=== PATIENT | male | born 1945 | race Caucasian/White ===

== ENCOUNTER 2020-06-12 13:30 | Outpatient (RCR) | payer MEDICARE, OTHER, SELFPAY | END 2021-02-22 14:13 | disposition home or self-care (01) | LOC: HO.WCC 13:30 | PROVIDERS: PCP Internal Medicine; Visit Provider Surgery | DX: E11.622 Type 2 diabetes mellitus with other skin ulcer (principal); L89.324 Pressure ulcer of left buttock, stage 4; E11.22 Type 2 diabetes mellitus with diabetic chronic kidney disease; I13.0 Hypertensive heart and chronic kidney disease with heart failure and stage 1 through stage 4 chronic kidney disease, or unspecified chronic kidney disease; I48.92 Unspecified atrial flutter; N18.30 Chronic kidney disease, stage 3 unspecified; I50.9 Heart failure, unspecified; I25.810 Atherosclerosis of coronary artery bypass graft(s) without angina pectoris; G82.21 Paraplegia, complete; I73.00 Raynaud's syndrome without gangrene; Z87.891 Personal history of nicotine dependence | CPT/HCPCS: 11042; 11043; 11045; 11046; 87071; 87147; 87186; 87205; 97597; 97605; 99212; 99213; 99214; 99215 ==

== ENCOUNTER 2020-07-12 16:45 | Emergency (ER) | payer MEDICARE, OTHER, SELFPAY ==
[2020-07-12 16:53] VITALS: BP 124/57; BP 150/84; PULSE 74; PULSE 92; RESP 18; TEMP 36.7; O2SAT 100; O2SAT 92; BMI 24.9
--- NOTE | 2020-07-12 17:53 | ED.LOWEXIN ---
HPI - Extremity Injury (Lower) General Chief Complaint: Extremity Injury, Lower Stated Complaint: laceration left leg Time Seen by Provider: 07/12/20 16:56 Source: patient Mode of arrival: ambulatory Limitations: no limitations History of Present Illness HPI Narrative: Transferring from car to wheelchair and lacerated left lower leg. Tetanus NOT UTD. 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) Type of Injury: blunt Place: home Severity: mild Relieving factors: nothing Exacerbating factors: nothing Context: direct blow Other symptoms: none Related Data Allergies Allergy/AdvReac Type Severity Reaction Status Date / Time cefuroxime [CEFUROXIME] AdvReac Intermediate GI SYMPTOMS Verified 07/12/20 17:43 Doxycycline Hyclate Allergy Unknown Unknown Uncoded 07/12/20 17:43 Review of Systems Review of Systems: Yes all other systems are reviewed and are negative Constitutional: Constitutional: Reports no additional constitutional complaints, Denies body ache(s), Denies chills, Denies fever(s), Denies headache(s) and Denies weakness Eyes: Eyes: Reports no additional eye complaints and Denies change in vision ENT: Reports system reviewed and no additional complaints, except as documented, Denies dizziness, Denies headache(s), Denies nasal congestion, Denies nasal discharge and Denies neck pain Cardiovascular: Cardiovascular: Reports no additional cardiovascular complaints, Denies chest pain, Denies leg edema and Denies dyspnea Respiratory: Respiratory: Reports no additional respiratory complaints, Denies cough and Denies dyspnea Gastrointestinal: Gastrointestinal: Reports no additional gastrointestinal complaints, Denies abdominal pain, Denies diarrhea, Denies nausea and Denies vomiting Genitourinary: Genitourinary: Denies urinary incontinence Musculoskeletal: Musculoskeletal: Reports no additional musculoskeletal complaints, Denies back pain, Denies arthralgias, Denies joint swelling, Denies neck pain, Denies numbness and Denies tingling Integumentary/Breasts: Skin/Breast: Reports system reviewed and no additional complaints, except as docu and Denies rash Comments: Skin laceration Neurologic: Reports system reviewed and no additional complaints, except as documented, Denies Abnormal speech present, Denies dizziness, Denies headache(s), Denies numbness, Denies tingling and Denies weakness PMFSH Past Medical History Attestation statement: The following information was validated with the patient. 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 Social History Social History Advance Directives: No Advance Directives Information Provided: Yes Physical Exam Vital Signs: Vital Signs: Vital Signs Temp Pulse Resp BP Pulse Ox 07/12/20 16:53 98.1 F 74 18 124/57 L 100 Body Mass Index 24.9 Const: General: cooperative, healthy appearing, comfortable and no acute distress Orientation/consciousness: patient oriented x3 Limitations: no limitations HENMT: Head: Yes normal to inspection Ears: hearing grossly normal bilaterally General nose exam: Normal external nose present Face and sinus: Yes normal facial exam Mouth: Normal oral and palatal mucosa present Throat: Yes posterior oropharynx normal Eyes: General: appearance normal, both eyes and all related structures Pupils: Equal, round and reactive pupils present Neck: Neck: Yes normal visual inspection Chest: Chest palpation & inspection: normal inspection of the chest Resp: Effort & Inspection: normal respiratory effort Auscultation: clear to auscultation bilaterally Cardio: Rate: regular rate Rhythm: regular rhythm Peripheral pulses: Peripheral pulses 2+ throughout GI: Inspection: Yes normal to inspection Palpation (GI): Soft to palpation and nontender Auscultation: normal bowel sounds Back/Spine/Pelvis: Thoracic/Lumbar Spine: thoracic and lumbar spine normal to inspection Skin: Other: Laceration to LLE (lateral). Runs vertically (10cm in length, 3cm in width), irregular edges with flap, exposed fascia and muscle. Limited range of motion d/t baseline paraplegia, sensation abnormal at baseline per patient. General skin exam: no rashes or lesions noted Neuro: General: patient oriented x3, no focal motor deficits and normal sensation to monofilament Cranial nerves: Yes Equal, round and reactive pupils present Cognition (Neuro): normal cognition Speech: No Abnormal speech present Gait exam (Neuro): Normal gait present Motor exam (neuro): 5/5 motor strength present throughout Extrem: General: Yes normal to inspection Course Course Course Narrative: See wound repair note. Tetanus updated. Reviewed wound care at home. He has nurses who come in weekly to change his chronic wounds. He will have them look at his wound on Friday. His will change dressings when nursing is not there. Reviewed worrisome signs/symptoms with patient and when to return to ED. Comfortable with discharge home. Procedures Laceration Laceration 1: Site: lower extremity Side (If applicable): left Size (cm): 10 Description: linear and irregular Depth: simple, single layer Local Anesthetic: other anesthetic (not needed) Pre-repair: wound explored, irrigated extensively and deep structures intact Skin layer closed with: nylon Size (cm): 3-0 Number of sutures: 14 Technique: simple, interrupted Subcutaneous layer closed with: other (polysorb) Size: 3-0 Number of sutures: 5 Technique: simple, interrupted Discharge Plan Discharge Clinical Impression: Laceration Patient Disposition: Home, Self-Care Instructions: Laceration (ED) Additional Instructions: Sutures out in 10-14 days Watch for signs of infection such as increasing redness, purulent drainage or fever greater than 100.4. Referrals: Dimitri Cantu MD [Primary Care Provider] - 2 days Interventions: ED Discharge Assessment Last Done: 07/12/20 18:20 Discharge Date/Time: 07/12/20 18:22
== END 2020-07-12 18:22 | disposition home or self-care (01) ==
PROVIDERS: Emergency Provider Internal Medicine; PCP Internal Medicine
DX: S81.812A Laceration without foreign body, left lower leg, initial encounter (principal); M79.605 Pain in left leg; S80.812A Abrasion, left lower leg, initial encounter; Y28.9XXA Contact with unspecified sharp object, undetermined intent, initial encounter; Y93.9 Activity, unspecified; Y92.9 Unspecified place or not applicable; Y99.9 Unspecified external cause status; Z23 Encounter for immunization
CPT/HCPCS: 12004; 90471; 90715; 99284

== ENCOUNTER → 2020-09-11 12:45 | Outpatient (REF) | payer MEDICARE, OTHER, SELFPAY ==
--- NOTE | 2020-09-11 13:00 | CA_ITS ---
Transthoracic Echocardiogram Patient (Last, First, Middle): Royce Winter, Gender: Male Date of : 1945 Age: 74 Procedure Date: 09/11/2020 Procedure Type: Transthoracic Echocardiogram Location: OP Height: 182.88 cm Weight: 81.65 kg BSA: 2.04 m2 Heart Rate: bpm BP: 120 / 60 mmHg Senior Engineering Manager: ZEHRA Referring MD: Kevan Woodard MD Symptoms: Z95.3 S/P AV REPLACEMENT W BIO PROS V, I48.3 ATRIAL FLUTTER Study Quality: Fair ECG Rhythm: Ventriculary paced rhythm Conclusions: - The left ventricular systolic function is normal. The visually estimated ejection fraction is between 65-70%. - There is mildly decreased right ventricular systolic function. - A bioprosthetic aortic valve is present. The prosthetic aortic valve appears to be functioning normally. - A bioprosthetic tricuspid valve is present. Mean gradient across the tricuspid valve 8 mm Hg at 70/min. This is elevated and suggests moderate stenosis. - Mild pulmonary hypertension is present. Findings Left Ventricle Normal left ventricular cavity size. There is mildly increased left ventricular wall thickness. The left ventricular systolic function is normal. The visually estimated ejection fraction is between 65-70%. There is no evidence of regional wall motion abnormalities. There is paradoxical septal motion consistent with post-operative status. Right Ventricle Normal right ventricular cavity size. There is mildly decreased right ventricular systolic function. Atria The left atrium is moderately dilated. The right atrium is normal in size. Aortic Valve A bioprosthetic aortic valve is present. The prosthetic aortic valve appears to be functioning normally. The peak aortic velocity is 2.19 m/s with a calculated peak gradient of 19 mmHg. The mean gradient is 9 mmHg. The aortic valve area is 1.89 cm2. There is mild aortic valve regurgitation. Mitral Valve The mitral valve appears normal. There is trace mitral valve regurgitation. There is no mitral valve stenosis. Pulmonic Valve The pulmonic valve was not well visualized. Tricuspid Valve A bioprosthetic tricuspid valve is present. The prosthetic tricuspid valve appears to be functioning abnormally. There is mild tricuspid valve regurgitation. The right ventricular systolic pressure is 46 mmHg. Mild pulmonary hypertension is present. Mean gradient across the tricuspid valve 8 mm Hg at 70/min. This is elevated and suggests moderate stenosis. Great Vessels The aortic annulus, sinuses of valsalva, and asc aorta are normal in size. Venous The inferior vena cava is dilated and collapses less than 50% with inspiration. Pericardium/Pleural There is no evidence of pericardial effusion. Prior Study Comparison No significant change compared to prior study dated: 02/23/2019. Measurements 2D Linear Measurements IVSd: 1.03 0.6-0.9/0.6-1.0 cm LVIDd: 4.16 3.9-5.3/4.2-5.9 cm LVIDd Index: 2.04 2.4-3.2/2.2-3.1 cm/m2 LVIDs: 2.51 2.0-3.6 cm LVPWd: 1.03 0.7-1.1 cm LA Diam: 4.30 2.7-3.8/3.0-4.0 cm LAIDs Index: 2.11 1.5-2.3 cm/m2 LV Mass: 175.40 67-162/88-224 g LV Mass Index: 85.98 43-95/49-115 g/m2 LVOT Diam: 2.10 3.0+(-)1.3 cm Mitral Valve MV Pk E: 1.04 MV PK A: 0.80 MV Decel Time: 292.00 E/A: 1.30 E'Medial: 4.06 E/E' Med: 25.60 PHT: 86.00 MVA PHT: 2.56 Decel Yoakum: 3.55 Aortic Valve AoV Pk Liban: 2.19 AoV Mn Liban: 1.34 AoV VTI: 0.36 AoV Pk Grad: 19.00 Aov Mn Grad: 9.00 JULES Cont.VTI: 1.89 AI Pk Liban: 4.27 AI Yoakum: 2.11 LVOT LVOT Pk Liban: 1.26 LVOT Mn Liban: 0.81 LVOT VTI: 0.20 LVOT Pk Grad: 6.00 LVOT Mn Grad: 3.00 LVOT Diam: 2.10 LVOT Area: 3.46 Diastolic Function MV Pk E: 1.04 MV Pk A: 0.80 E/A: 1.30 E'Medial: 4.06 E/E' Med: 25.60 Tricuspid Valve TV Pk Liban: 2.01 TV Mn Liban: 1.35 TV Pk Grad: 16.00 TV Mn Grad: 8.00 TR Pk Liban: 2.80 TR Pk Grad: 31.00 RA Press: 15.00 RVSP: 46.00 Great Vessels Aorta Ao Asc: 3.00 2.1-3.4 cm Ao Arch: 3.80 Updated in Other Vendor System with Status of Final Kevan Woodard MD electronically signed on 09/12/2020 12:30:45 PM with status of Final
== END ==
LOC: HO.CARD 12:45
PROVIDERS: PCP Internal Medicine; Visit Provider Internal Medicine
DX: I48.3 Typical atrial flutter (principal); Z95.3 Presence of xenogenic heart valve
CPT/HCPCS: 93306

== ENCOUNTER 2020-09-18 12:24 | Outpatient (REF) | payer MEDICARE, OTHER, SELFPAY ==
[2020-09-18 14:44] LABS: Basophils Percent Auto 0.3 % (0-2); Eosinophils Absolute Auto 0.1 X10*3/uL (0.0-0.4); Eosinophils Percent Auto 1.4 % (0-4); Hematocrit 30.9 % (42-52); Imm Gran Abs Auto 0.11 X10*3/uL (0.00-0.03); Imm Gran Pct Auto 1.1 % (0.0-0.4); Lymphocytes Absolute Auto 1.1 X10*3/uL (1.2-4.9); Lymphocytes Percent Auto 11.4 % (20-40); MANUAL DIFF FLAG NO; Mean Corpuscular HGB Conc 29.1 g/dl (31.0-36.0); Mean Corpuscular Hemoglobin 23.4 pg (27.0-33.0); Mean Corpuscular Volume 80.3 fL (80-98); Mean Platelet Volume 10.5 fL (9.4-12.4); Monocytes Absolute Auto 0.9 X10*3/uL (0.1-1.2); Monocytes Percent Auto 8.8 % (2-11); Neutrophils Absolute Auto 7.6 X10*3/uL (2.0-8.3); Platelet Count 272 X10*3/uL (160-400); Red Blood Count 3.85 X10*6/uL (4.60-5.80); Red Cell Distribution Width 21.2 % (11.0-16.0); White Blood Count 9.9 X10*3/uL (4.8-10.8)
[2020-09-18 15:27] LABS: Erythrocyte Sedimentation Rate 40 MM/HR (0-15)
[2020-09-18 15:51] LABS: Anion Gap 16 (12-20); Blood Urea Nitrogen 93 mg/dL (9-16); C Reactive Protein 3.54 mg/dL (< or = 0.50); Calcium 9.1 mg/dL (8.4-10.2); Carbon Dioxide 19 mmol/L (22-29); Chloride 108 mmol/L (96-108); Estimated Glomerular Filt Rate 33; Glucose Random 184 mg/dL (60-115); Sodium 138 mmol/L (135-145)
== END 2020-09-18 12:25 | disposition home or self-care (01) ==
LOC: HO.LAB 12:24
PROVIDERS: Absent Provider Physician Assistant; PCP Internal Medicine; Referring Provider Internal Medicine; Visit Provider Internal Medicine
DX: I11.0 Hypertensive heart disease with heart failure (principal); I50.812 Chronic right heart failure; I48.3 Typical atrial flutter; Z45.018 Encounter for adjustment and management of other part of cardiac pacemaker; Z95.3 Presence of xenogenic heart valve; Z95.4 Presence of other heart-valve replacement; L89.90 Pressure ulcer of unspecified site, unspecified stage
CPT/HCPCS: 36415; 80048; 84134; 85025; 85652; 86140; 93005; 99212

== ENCOUNTER 2020-11-13 15:55 | Outpatient (REF) | payer MEDICARE, OTHER, SELFPAY ==
--- NOTE | ~2020-11-13 | US_ITS ---
EXAMINATION: US VENOUS ULTRASOUND WITH DOPPLER LOWER EXTREMITY, RIGHT CLINICAL INFORMATION: Right leg edema and redness. COMPARISON: None TECHNIQUE: Ultrasound of the deep veins is performed from the hip to the calf with compression sonography and color and pulse Doppler assessment. Spectral analysis with color-flow imaging is performed. FINDINGS: There is normal venous compression and respiratory variation and augmented flow. The visualized common femoral vein, superficial femoral vein, profunda femoral vein, popliteal vein, and the trifurcation region shows no evidence of deep venous thrombosis. There is no significant popliteal fossa cyst. If the patient's symptoms persist, followup ultrasound in 5 days 7 days might be of value to exclude proximal propagation from a non-visualized calf vein. US/US venous duplex LE RT IMPRESSION: No DVT demonstrated in the right lower extremity.
== END 2020-11-13 15:56 | disposition home or self-care (01) ==
LOC: HO.US 15:55
PROVIDERS: Visit Provider Physician Assistant
DX: R60.0 Localized edema (principal); R23.8 Other skin changes; G82.21 Paraplegia, complete
CPT/HCPCS: 93971

== ENCOUNTER 2020-12-04 12:40 | Outpatient (REF) | payer MEDICARE, OTHER, SELFPAY ==
--- NOTE | ~2020-12-04 | US_ITS ---
EXAMINATION: US ARTERIAL LOWER EXTREMITY DUPLEX, BILATERAL CLINICAL INFORMATION: Peripheral vascular disease. COMPARISON: None TECHNIQUE: Real-time ultrasound and Doppler techniques (integrating B-mode 2-D vascular images, Doppler spectral analysis and color flow Doppler imaging) were utilized to interrogate the lower extremities. FINDINGS: RIGHT LEG: Common femoral artery: 57 cm/s, multiphasic Profunda femoris artery: There is a proximal calcific plaque resulting in posterior acoustic shadowing. Proximal to the plaque, peak systolic velocity is recorded as 38.8 cm/s with a multiphasic waveform, and distal to this plaque, the velocity is recorded as 123 cm/s with a multiphasic waveform. Superficial femoral artery (proximal): 58.5 cm/s, multiphasic Superficial femoral artery (mid): 26.1 cm/s, monophasic Superficial femoral artery (distal): 88.8 cm/s, monophasic Popliteal artery: 23.8 cm/s, monophasic Peroneal artery: 33.6 cm/s, monophasic Posterior tibial artery: 24 cm/s, monophasic LEFT LEG: Common femoral artery: 78 cm/s, multiphasic Profunda femoris artery: 96.2 cm/s, multiphasic Superficial femoral artery (proximal): 57 cm/s, multiphasic Superficial femoral artery (mid): There is focal narrowing at the midportion of the vessel, the proximal, more normal vessel diameter is measured as 0.64 cm and the stenotic portion narrows 0.268 cm. Proximal to this narrowing, peak systolic velocity measures on the order of 138 cm/s. At the level of this narrowing, peak systolic velocity is recorded as 206 cm/s. Waveforms are multiphasic. Superficial femoral artery (distal): 28.1 cm/s, biphasic Popliteal artery: 42.8 cm/s, biphasic Peroneal artery: 20.2 cm/s, monophasic Posterior tibial artery: 60.1 cm/s, monophasic US/US arterial duplex LE BI IMPRESSION: On the right, there is monophasic flow visualized beyond the level of the proximal superficial femoral artery suggestive of some degree of stenosis between the visualized proximal and midportion segments. On the left, there is moderate focal stenosis at the midportion of the superficial femoral artery with decreased peak systolic velocities and decreased phasicity of waveforms.
== END 2020-12-04 12:41 | disposition home or self-care (01) ==
LOC: HO.US 12:40
PROVIDERS: Visit Provider Physician Assistant
DX: I73.9 Peripheral vascular disease, unspecified (principal)
CPT/HCPCS: 93925

== ENCOUNTER → 2020-12-22 12:54 | Outpatient (BNVA) | payer MEDICARE, OTHER, SELFPAY | PROVIDERS: PCP Internal Medicine; Visit Provider Surgery Vascular Surgery | DX: I73.9 Peripheral vascular disease, unspecified (principal) | CPT/HCPCS: 99202 ==

== ENCOUNTER 2020-12-27 13:36 | Outpatient (REF) | payer MEDICARE, OTHER, SELFPAY ==
[2020-12-27 16:01] LABS: B Type Natriuretic Peptide 611 pg/mL (<100)
[2020-12-27 16:35] LABS: Anion Gap 16 (12-20); Blood Urea Nitrogen 86 mg/dL (9-16); Carbon Dioxide 19 mmol/L (22-29); Chloride 104 mmol/L (96-108); Estimated Glomerular Filt Rate 31; Glucose Random 232 mg/dL (60-115); Potassium 4.8 mmol/L (3.3-5.1); Sodium 134 mmol/L (135-145)
== END 2020-12-27 13:37 | disposition home or self-care (01) ==
LOC: HO.LAB 13:36
PROVIDERS: PCP Internal Medicine; Visit Provider Internal Medicine
DX: I50.812 Chronic right heart failure (principal)
CPT/HCPCS: 36415; 80048; 83880

== ENCOUNTER → 2020-12-28 13:31 | Outpatient (BNVA) | payer MEDICARE, OTHER, SELFPAY | PROVIDERS: PCP Internal Medicine; Visit Provider Nurse Practitioner Family | DX: I11.0 Hypertensive heart disease with heart failure (principal); I50.812 Chronic right heart failure; I48.3 Typical atrial flutter; I73.9 Peripheral vascular disease, unspecified; Z95.0 Presence of cardiac pacemaker; Z95.3 Presence of xenogenic heart valve; Z95.4 Presence of other heart-valve replacement; Z79.899 Other long term (current) drug therapy | CPT/HCPCS: 99212 ==

== ENCOUNTER 2021-01-03 15:26 | Outpatient (REF) | payer MEDICARE, OTHER, SELFPAY ==
[2021-01-03 16:27] LABS: B Type Natriuretic Peptide 494 pg/mL (<100)
[2021-01-03 16:50] LABS: Anion Gap 17 (12-20); Calcium 8.6 mg/dL (8.4-10.2); Carbon Dioxide 15 mmol/L (22-29); Chloride 106 mmol/L (96-108); Estimated Glomerular Filt Rate 21; Glucose Random 210 mg/dL (60-115); Sodium 133 mmol/L (135-145)
[2021-01-03 19:18] LABS: Blood Urea Nitrogen 89 mg/dL (9-16)
== END 2021-01-03 15:27 | disposition home or self-care (01) ==
LOC: HO.LAB 15:26
PROVIDERS: PCP Internal Medicine; Visit Provider Nurse Practitioner Family
DX: I50.812 Chronic right heart failure (principal)
CPT/HCPCS: 36415; 80048; 83880

== ENCOUNTER 2021-01-07 10:16 | Inpatient (IN) | payer MEDICARE, OTHER, SELFPAY ==
--- NOTE | ~2021-01-07 | IR_ITS ---
PROCEDURE: IR INSERTION OF TUNNEL CATHETER IR ULTRASOUND-GUIDED VENOUS ACCESS CLINICAL INFORMATION: Central venous access for outpatient antibiotic therapy. COMPARISON: None TECHNIQUE: Ultrasound and fluoroscopy-guided placement of right internal jugular central venous catheter. All elements of maximal sterile barrier technique followed including use of cap, mask, sterile gown, sterile gloves, a sterile full body drape and hand hygiene. Also followed skin preparation with 2% chlorhexidine for cutaneous antisepsis, and sterile ultrasound preparation with sterile gel and probe cover when applicable. FINDINGS: Informed consent was obtained from the patient prior to the procedure. During this process, the procedure and potential alternatives were explained, along with the intended outcome and benefits. The risks of the procedure, as well as the risk of not doing the procedure, were discussed. The patient was given the opportunity to ask questions regarding the procedure and appeared competent to make medical decisions. A signed consent form which documents this discussion was placed in the medical record. Using sterile technique and ultrasound guidance, the right internal jugular vein was punctured and guidewire directed into the inferior vena cava. Following this, a 6-Cameroonian Pro-Line catheter was tunneled within the superior aspect of the right chest wall. Following this, a 6-Cameroonian peel-away sheath was placed over guidewire into the superior vena cava. The Pro-Line catheter was then trimmed to 31 cm in length and placed through the peel-away sheath with its tip lying in the mid right atrium. The catheter aspirated and flushed freely. The catheter was then flushed with 5 mL of Hep-Lock solution, 100 U/mL. Dermabond was placed over the internal jugular puncture site. Antimicrobial disc placed at the skin insertion site. Patient tolerated the procedure and left the interventional suite in stable condition. IR/IR us guide venous access IMPRESSION: Placement of right internal jugular Pro-Line catheter, as described. 1.8 minutes fluoroscopy.
--- NOTE | ~2021-01-07 | IR_ITS ---
PROCEDURE: IR INSERTION OF TUNNEL CATHETER IR ULTRASOUND-GUIDED VENOUS ACCESS CLINICAL INFORMATION: Central venous access for outpatient antibiotic therapy. COMPARISON: None TECHNIQUE: Ultrasound and fluoroscopy-guided placement of right internal jugular central venous catheter. All elements of maximal sterile barrier technique followed including use of cap, mask, sterile gown, sterile gloves, a sterile full body drape and hand hygiene. Also followed skin preparation with 2% chlorhexidine for cutaneous antisepsis, and sterile ultrasound preparation with sterile gel and probe cover when applicable. FINDINGS: Informed consent was obtained from the patient prior to the procedure. During this process, the procedure and potential alternatives were explained, along with the intended outcome and benefits. The risks of the procedure, as well as the risk of not doing the procedure, were discussed. The patient was given the opportunity to ask questions regarding the procedure and appeared competent to make medical decisions. A signed consent form which documents this discussion was placed in the medical record. Using sterile technique and ultrasound guidance, the right internal jugular vein was punctured and guidewire directed into the inferior vena cava. Following this, a 6-Cambodian Pro-Line catheter was tunneled within the superior aspect of the right chest wall. Following this, a 6-Cambodian peel-away sheath was placed over guidewire into the superior vena cava. The Pro-Line catheter was then trimmed to 31 cm in length and placed through the peel-away sheath with its tip lying in the mid right atrium. The catheter aspirated and flushed freely. The catheter was then flushed with 5 mL of Hep-Lock solution, 100 U/mL. Dermabond was placed over the internal jugular puncture site. Antimicrobial disc placed at the skin insertion site. Patient tolerated the procedure and left the interventional suite in stable condition. IR/IR cvc insert central tunnel IMPRESSION: Placement of right internal jugular Pro-Line catheter, as described. 1.8 minutes fluoroscopy.
--- NOTE | ~2021-01-07 | XR_ITS ---
EXAMINATION: XR CHEST CLINICAL INFORMATION: Severe dehydration, rule out pneumonia COMPARISON: 06/07/2018 TECHNIQUE: Frontal view of the chest was obtained. FINDINGS: Left-sided pacemaker device is unchanged in position. Median sternotomy wires are intact. Partially visualized posterior fusion hardware at the thoracolumbar junction. Stable cardiomediastinal silhouette. New small to moderate right pleural effusion and right basilar airspace opacity. No acute osseous abnormality. XR/XR chest 1V IMPRESSION: Small to moderate right pleural effusion. Right basilar airspace opacity, that may reflect atelectasis or infiltrate.
[2021-01-07 10:27] VITALS: BP 126/43; PULSE 89; RESP 18; TEMP 37.4; O2SAT 96; BMI 26.9
--- NOTE | 2021-01-07 11:07 | ED.NAVMDI ---
HPI - Nausea/Vomiting/Diarrhea General Chief complaint: Nausea/Vomiting/Diarrhea Stated complaint: diarrhea Time Seen by Provider: 01/07/21 11:03 Source: patient and EMS Mode of arrival: EMS Limitations: no limitations History of Present Illness HPI Narrative: This is a 75-year-old male came in for evaluation of nonbloody watery diarrhea for the past 9 days. Nonbloody watery diarrhea started 9 days ago, after taking the medication prescribed for his coughing (patient does remember the name), patient otherwise declined chest pain, abdominal pain, nausea, or vomiting. Patient also declined any recent travel or taking bad food. Patient declined any recent use of antibiotic. Related Data Home Medications Medication Instructions Recorded Confirmed ascorbic acid (vitamin C) 500 mg mg PO 09/18/20 12/28/20 capsule calcium citrate 200 mg (950 mg) 200 mg PO DAILY 09/18/20 12/28/20 tablet cholecalciferol (vitamin D3) 50 50 mcg PO DAILY 09/18/20 12/28/20 mcg (2,000 unit) capsule furosemide 40 mg tablet 40 mg PO DAILY tab 09/18/20 12/28/20 losartan 50 mg tablet 25 mg PO BID tab 09/18/20 12/28/20 metformin 500 mg tablet 500 mg PO BID 09/18/20 12/28/20 metoprolol tartrate 25 mg tablet See Rx Instructions PO .COMPLEX 09/18/20 12/28/20 multivitamin 1 tab PO DAILY 09/18/20 12/28/20 potassium chloride 20 mEq 20 meq PO DAILY tab 09/18/20 12/28/20 tablet,extended release(part/cryst) Allergies Allergy/AdvReac Type Severity Reaction Status Date / Time linezolid [From Zyvox] AdvReac Severe SEVERE Verified 12/22/20 13:07 STOMACH PAIN cefuroxime [CEFUROXIME] AdvReac Intermediate GI SYMPTOMS Verified 12/22/20 13:07 Doxycycline Hyclate Allergy Unknown Unknown Uncoded 12/22/20 13:07 Review of Systems Review of Systems: All other systems are reviewed and are negative Constitutional: Reports as per HPI and Reports no additional constitutional complaints Eyes: Reports as per HPI and Reports no additional eye complaints Reports system reviewed and no additional complaints, except as documented Cardiovascular: Reports as per HPI and Reports no additional cardiovascular complaints Respiratory: Reports as per HPI and Reports no additional respiratory complaints Gastrointestinal: Reports as per HPI and Reports no additional gastrointestinal complaints Genitourinary: Reports no additional female genitourinary complaints Musculoskeletal: Reports no additional musculoskeletal complaints Skin/Breast: Reports system reviewed and no additional complaints, except as docu Psychiatric: Reports no additional psychiatric complaints Endocrine: Reports no additional endocrine complaints Hematologic/Lymphatic: Reports no additional hematologic/lymphatic complaints Allergic/Immunologic: Reports no additional allergic/immunologic complaints Reports system reviewed and no additional complaints, except as documented and Reports Abnormal speech present [facility] Past Medical History Medical History Bacterial endocarditis Chronic right heart failure Endocarditis Essential hypertension Mitral and aortic heart valve diseases, unspecified Normally functioning cardiac pacemaker present Pacemaker 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 Typical atrial flutter Surgical History Status post aortic valve replacement with bioprosthetic valve Status post tricuspid valve replacement Social History Social History Household Members: Significant Other Alcohol intake: never Smoked in Last 30 Days: No Use of substances other than those prescribed or required for medical reasons: No Advance Directives: Yes Advance Directives Information Provided: No Advance Directives on File: No Physical Exam Vital Signs: Vital Signs: Last Vital Signs Temp 99.4 F 01/07/21 10:27 Pulse 89 01/07/21 10:27 Resp 18 01/07/21 10:27 BP 126/43 L 01/07/21 10:27 Pulse Ox 96 01/07/21 10:27 Body Mass Index 26.9 Vital signs have been reviewed as appeared to be correct. Blood pressure normal. Heart rate normal. Respiration rate normal. Temperature normal. Oxygen saturation normal. Appearance: Alert. Oriented X3. No acute distress. Head: Normal external exam. Normocephalic. Atraumatic. No Preston signs noted. No raccoon eyes noted Eyes: PERRLA. EOMI. Conjunctiva and sclera normal. Eyelids normal. ENT: TM's Normal. Pharynx normal. Uvula midline. Moist mucous membranes. No trismus noted. No drooling noted. No muffled voice noted. Neck: Normal inspection. Neck supple. FROM. No adenopathy. Thyroid Normal. No meningeal signs. No neck mass noted. CVS: Normal heart rate and rhythm. Heart sound normal. No murmurs noted. Pulses normal throughout. Respiratory: No respiratory distress. Painless inspiration. Breath sounds normal. No wheezes/rales/rhonchi noted. Chest nontender. No accessory muscle usage noted or decreased air movement noted. Abdomen: Soft and nontender. Bowel sounds normal in all 4 quadrants. No distention noted. No organomegaly noted. No visible injury noted. Back: No CVA tenderness. Full range of motion noted. Skin: Skin warm and dry. Normal skin color. Normal skin turgor. No rashes/lesions/lacerations noted. Extremities: No lower extremity edema. Extremities exhibit normal range of motion. Extremities nontender. Neuro: Oriented X 3. No motor deficit. No sensory deficit. Reflexes normal. Discharge Plan Discharge Prescriptions: No Action metformin 500 mg tablet 500 mg PO BID RF: 0 metoprolol tartrate 25 mg tablet See Rx Instructions PO .COMPLEX RF: 0 losartan 50 mg tablet 25 mg PO BID RF: 0 furosemide 40 mg tablet 40 mg PO DAILY RF: 0 potassium chloride 20 mEq tablet,ER particles/crystals 20 meq PO DAILY RF: 0 cholecalciferol (vitamin D3) 50 mcg (2,000 unit) capsule 50 mcg PO DAILY RF: 0 multivitamin Tablet 1 tab PO DAILY RF: 0 ascorbic acid (vitamin C) 500 mg capsule PO RF: 0 calcium citrate 200 mg (950 mg) tablet 200 mg PO DAILY RF: 0
[2021-01-07] MEDS: 0.9 % Sodium Chloride 1,000 ML 999 ML IVCONT ×2 (11:23→16:20)
[2021-01-07 11:29] LABS: Basophils Percent Auto 0.1 % (0-2); Hematocrit 31.9 % (42-52); Hemoglobin 9.7 g/dl (14.0-18.0); Imm Gran Abs Auto 0.09 X10*3/uL (0.00-0.03); Imm Gran Pct Auto 0.7 % (0.0-0.4); Lymphocytes Absolute Auto 0.5 X10*3/uL (1.2-4.9); Lymphocytes Percent Auto 3.7 % (20-40); MANUAL DIFF FLAG SCAN; Mean Corpuscular HGB Conc 30.4 g/dl (31.0-36.0); Mean Corpuscular Volume 78.8 fL (80-98); Mean Platelet Volume 9.7 fL (9.4-12.4); Monocytes Absolute Auto 1.5 X10*3/uL (0.1-1.2); Monocytes Percent Auto 10.7 % (2-11); Neutrophils Absolute Auto 11.6 X10*3/uL (2.0-8.3); Neutrophils Percent Auto 84.8 % (45-73); Platelet Count 267 X10*3/uL (160-400); Red Blood Count 4.05 X10*6/uL (4.60-5.80); Red Cell Distribution Width 16.5 % (11.0-16.0); SCAN SMEAR FLAG 1; White Blood Count 13.7 X10*3/uL (4.8-10.8)
[2021-01-07 11:48] LABS: SLIDE REVIEW VERIFIED
[2021-01-07 11:55] LABS: Alanine Aminotransferase 15 U/L (0-40); Albumin Level 3.2 g/dL (3.5-5.0); Alkaline Phosphatase 99 U/L (39-117); Aspartate Amino Transferase 19 U/L (5-37); Bilirubin Direct 0.3 mg/dL (0.0-0.5); Bilirubin Total 0.6 mg/dL (0.0-1.0); Calcium 8.7 mg/dL (8.4-10.2); Glucose Random 165 mg/dL (60-115); Lipase 19 U/L (8-78); Total Protein 6.3 g/dL (6.5-8.0)
[2021-01-07 12:05] LABS: Anion Gap 18 (12-20); Blood Urea Nitrogen 104 mg/dL (9-16); Carbon Dioxide 12 mmol/L (22-29); Chloride 106 mmol/L (96-108); Creatinine Clr Calc Pharmacy 17.3; Estimated Glomerular Filt Rate 16; Sodium 130 mmol/L (135-145)
--- NOTE | 2021-01-07 13:14 | ECG_ITS ---
Test Reason : VOMITING Blood Pressure : / mmHG Vent. Rate : 060 BPM Atrial Rate : 078 BPM P-R Int : 000 ms QRS Dur : 170 ms QT Int : 468 ms P-R-T Axes : 082 114 -31 degrees QTc Int : 468 ms Ventricular-paced rhythm Abnormal ECG When compared with ECG of 07-JUN-2018 06:31, No significant changes seen Referred By: Hiram Le Electronically Signed By:SNEHAL LOPEZ
[2021-01-07 14:05] VITALS: BP 92/38; PULSE 60; RESP 16; O2SAT 98
--- NOTE | 2021-01-07 14:21 | PC.NURSE ---
second l jamey hung per verbal order
[2021-01-07 14:29] LABS: Influenza A PCR NEGATIVE (Negative); Influenza B PCR NEGATIVE (Negative); Resp Syncy Virus RNA Qual PCR NEGATIVE (Negative); SARS COV2 PCR INHOUSE NEGATIVE (Negative)
[2021-01-07 15:11] VITALS: BP 102/42
--- NOTE | 2021-01-07 15:23 | PM.IMHP ---
History of Present Illness Date of Service: 01/07/21 Chief Complaint: diarrhea 75M presented with diarrhea. symptoms began about 8 days ptp. patient has several watery stools daily, each episode is proceeded by sharp abdominal pain releived by defecation. denies blood. stool is low volume. not improved with imodium. patient attributes diarrhea to metolazone, although has been off for over a week. patient denies fever, chills, sob. 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 patient given iv fluids. Review of Systems Review of Systems: Constitutional: Denies fever, denies Chills Eyes: denies blurry vision ENT: denies sore throat CVS: denies chest pain Respiratory: Denies dyspnea GI: diarrhea : denies dysuria MSK: denies neck pain Skin: denies rash Neuro: denies specific motor weakness Psych: denies suicidal ideation Endocrine: denies heat/cold intoleratnce Hematologic: denies easy bleeding Allergy: denies hives [facility] Medical History (Updated 01/07/21 @ 15:30 by Jericho Johnson MD) Bacterial endocarditis Chronic right heart failure Diabetes Endocarditis Essential hypertension Mitral and aortic heart valve diseases, unspecified Normally functioning cardiac pacemaker present Pacemaker Paraplegia 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 Typical atrial flutter Family history: reviewed and not pertinent Surgical History Status post aortic valve replacement with bioprosthetic valve Status post tricuspid valve replacement Social History Household Members: Significant Other Alcohol intake: never Smoked in Last 30 Days: No Use of substances other than those prescribed or required for medical reasons: No Advance Directives: Yes Advance Directives Information Provided: No Advance Directives on File: No Meds Allergies Allergy/AdvReac Type Severity Reaction Status Date / Time linezolid [From Zyvox] AdvReac Severe SEVERE Verified 12/22/20 13:07 STOMACH PAIN cefuroxime [CEFUROXIME] AdvReac Intermediate GI SYMPTOMS Verified 12/22/20 13:07 Doxycycline Hyclate Allergy Unknown Unknown Uncoded 12/22/20 13:07 Home Medications Medication Instructions Recorded Confirmed Last Taken Type ascorbic acid (vitamin C) 500 mg mg PO 09/18/20 12/28/20 Unknown History capsule calcium citrate 200 mg (950 mg) 200 mg PO DAILY 09/18/20 12/28/20 Unknown History tablet cholecalciferol (vitamin D3) 50 50 mcg PO DAILY 09/18/20 12/28/20 Unknown History mcg (2,000 unit) capsule furosemide 40 mg tablet 40 mg PO DAILY tab 09/18/20 12/28/20 Unknown History losartan 50 mg tablet 25 mg PO BID tab 09/18/20 12/28/20 Unknown History metformin 500 mg tablet 500 mg PO BID 09/18/20 12/28/20 Unknown History metoprolol tartrate 25 mg tablet See Rx Instructions PO .COMPLEX 09/18/20 12/28/20 Unknown History multivitamin 1 tab PO DAILY 09/18/20 12/28/20 Unknown History potassium chloride 20 mEq 20 meq PO DAILY tab 09/18/20 12/28/20 Unknown History tablet,extended release(part/cryst) collagenase clostridium histo. 1 applic TOPICAL DAILY 01/07/21 01/07/21 Unknown History [Santyl] metolazone 2.5 mg PO 01/07/21 Unknown History Physical Exam Vital Signs and Narrative: Vital Signs: Last Vital Signs Temp 99.4 F 01/07/21 10:27 Pulse 60 01/07/21 14:05 Resp 16 01/07/21 14:05 BP 102/42 L 01/07/21 15:11 Pulse Ox 98 01/07/21 14:05 Body Mass Index 26.9 General: no acute distress HEENT: atraumatic Neck: normal to visual inspection CVS: S1, S2, RRR, murmur Resp: CTA bilateral Chest: non tender GI: soft, non tender, non distended : no CVA tenderness Skin: no rashes Extremities: no edema Neuro: Oriented X3, paraplegia Psych: cooperative Results Labs CBC and Chem 7: 01/07/21 11:21 01/07/21 11:21 Labs: Laboratory Results - last 24 hr 01/07/21 01/07/21 01/07/21 11:21 11:21 11:21 MCV 78.8 L MCH 24.0 L MCHC 30.4 L RDW 16.5 H Plt Count 267 MPV 9.7 Immature Gran % (Auto) 0.7 H Neut % (Auto) 84.8 H Lymph % (Auto) 3.7 L [place] % (Auto) 10.7 Eos % (Auto) 0.0 Baso % (Auto) 0.1 Lymph # (Auto) 0.5 L [place] # (Auto) 1.5 H Eos # (Auto) 0.0 Baso # (Auto) 0.0 Abs Immat Gran (auto) 0.09 H Absolute Neuts (auto) 11.6 H Absolute Nucleated RBC 0.000 Nucleated RBC % (auto) 0.0 Smear Tech's Comments VERIFIED Anion Gap 18 Estim Creat Clear Calc 17.3 Estimated GFR 16 Random Glucose 165 H Lactic Acid 1.0 Calcium 8.7 Total Bilirubin 0.6 Direct Bilirubin 0.3 AST 19 ALT 15 Alkaline Phosphatase 99 Total Protein 6.3 L Albumin 3.2 L Lipase 19 Imaging Radiologist's Impressions: Impressions Chest X-Ray 01/07/21 11:04 IMPRESSION: Small to moderate right pleural effusion. Right basilar airspace opacity, that may reflect atelectasis or infiltrate. Assessment and Plan (1) Paraplegia: Status: Acute 75M presented with diarrhea, found to have Gemma and hyperkalemia diarrhea check cdif, if negative will use imodium GEMMA on CKD IV complicated by hyperkalemia due to diarrhea hold lisinopril, losartan, K supplements, lopressor, metformin, lasix will give IV fluids monitor bmp nephro eval DM hold metformin insulin sliding scale paraplegia usually self catheterizes, will insert newton inpatient PVD outpatient follow up with dr Tanner
[2021-01-07 16:45] LABS: Glucose Urine UA NEG (NEG); Leukocyte Esterase Urine 2+ (NEG); Nitrite Urine NEG (NEG); PH 5.5 (5.0-8.0); UACC Culture Trigger YES; Urine Blood 1+ (NEG); Urine Ketones NEG (NEG); Urine Protein TRACE MG/DL (NEG-TRACE)
[2021-01-07 16:47] LABS: Appearance Urine CLOUDY; Color Urine YELLOW
[2021-01-07 16:54] LABS: Bacteria Urine 3+ /LPF; Squamous Epithelial Cell Urine 1+ /LPF; WBC Urine TNTC /HPF (0-4)
[2021-01-07] MEDS: Albumin Human 25 % 100 ML IV ×2 (18:12→20:11)
--- NOTE | 2021-01-07 18:16 | PC.NURSE ---
reports two wounds- l buttock area and l lower leg
--- NOTE | 2021-01-07 18:21 | PC.NURSE ---
stemp at bedside
--- NOTE | 2021-01-07 18:26 | PC.NURSE ---
bp continues soft systolic 80-100/40-80 s/p 3 liters of ns. stemp at bedside for ultrasound and albumin infusing per order.
--- NOTE | 2021-01-07 18:44 | PM.EVENT ---
Event Note Date of Service: 01/07/21 Event Note: I was asked by Dr. Johnson to look at Mr. Winter in the ED bec of hypotension. The patient is a 75 yo gentlemen with the following PMHx: Bacterial endocarditis Chronic right heart failure Diabetes Essential hypertension Mitral and aortic heart valve diseases, unspecified Cardiac pacemaker Atrial flutter Paraplegia 2? 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 No blood. Stool is low volume, not improved with imodium. Patient attributed diarrhea to metolazone, although has been off for over a week. Denied fever, chills, sob. Denied any travel, bad food, or recent antibiotics. In ED NAD. Afebrile. BP about 120/40. Heart rate 60, paced. Breathing easy, sat 98 on room air. Abdomen benign. WBC 13.7, Hb 9.7, INR 1.4, Na 130 BUN/creat 104/3.7, K 6.0, bicarb 12. Lactic acid negative. He was given 2 L of IV fluid and his blood pressure initially came up, but then dropped into the 80s. Dr. Johnson asked me to look at him. In the ER, the patient is not ill appearing.. He is breathing easy. Blood pressure when I saw him was initially 94 systolic, then 104 systolic. I syringed in 100 cc of 5% albumin. His next blood pressure was 136. ECHOCARDIOGRAM: I echoed him at the bedside. Image quality: Good. Findings: 1. Mild LVH. 2. Normal LV function with ejection fraction at least 55%. No regional wall motion abnormalities. 3. Possibly top-normal RV size with normal RV function. 4. Tricuspid valve continuous wave Doppler jet measured 2.8 m/s. Gradient 31mm. 5. IVC is dilated at 2.5cm, with about 25% insp collapse. Est CVP 15mm. RVSP estimate 46mm. IMPRESSION: 1. Diarrhea. Etiology undetermined at this time. R/o CDiff. 2. Hypotension. Given the fluid response, would appear to be hypovolemia, despite the echo findings. 3. GEMMA. At least in part 2? hypovolemia. 4. Prosthetic valves. Check blood cultures. 5. Hyperkalemia. Usual treatment. Follow up chemistries are pending. I called Dr. Johnson and discussed the above. He will f/u. Time: 45 min. [id number]
[2021-01-07 18:45] VITALS: BP 129/68
[2021-01-07 19:07] LABS: Anion Gap 16 (12-20); Blood Urea Nitrogen 98 mg/dL (9-16); Calcium 8.3 mg/dL (8.4-10.2); Carbon Dioxide 12 mmol/L (22-29); Chloride 110 mmol/L (96-108); Creatinine Clr Calc Pharmacy 18.3; Estimated Glomerular Filt Rate 17; Glucose Random 129 mg/dL (60-115); Potassium 5.3 mmol/L (3.3-5.1); Sodium 133 mmol/L (135-145)
[2021-01-07 20:10] VITALS: BP 106/43; PULSE 60; RESP 21; O2SAT 94
[2021-01-07] MEDS: Heparin Sodium,Porcine 5,000 UNIT/ML VIAL 5000 UNIT SUBCUT (20:11)
[2021-01-07] MEDS: 0.9 % Sodium Chloride 1,000 ML 80 ML IVCONT (20:14)
[2021-01-07 20:44] LABS: Glucose, Whole Blood 114 mg/dL (60-115)
--- NOTE | 2021-01-07 21:05 | PC.NURSE ---
pt sleeping, wakes easily. pt reports feeling tired, when asked how he was doing. pt had medium bm-diarrhea. pt refused kayexelate.
--- NOTE | 2021-01-07 22:51 | PC.NURSE ---
pt placed in hospital bed for comfort. pt has a stage 3 or stage 4 wound to left coccyx/buttock that has a special dressing and has been treated weekly by wound care, per patient.
[2021-01-07 23:05] VITALS: BP 104/44; PULSE 60; RESP 20; O2SAT 96
[2021-01-08] VITALS (10 sets, daily range): BP systolic 82–132; BP diastolic 27–54; PULSE 60–92; RESP 13–20; TEMP 36.1–37.2; O2SAT 93–99; BMI 26.9
[2021-01-08] MEDS: Heparin Sodium,Porcine 5,000 UNIT/ML VIAL 5000 UNIT SUBCUT ×3 (04:26→17:18)
--- NOTE | 2021-01-08 06:32 | PC.NURSE ---
CALLED AND REPORTS THAT PATIENT HAS SPECIFIC INSTUCTIONS FOR PT'S WOUNDS ON COCCYX AND RIGHT HEEL. THEY ARE KEPT IN HIS BLACK CASE, AND DRESSINGS NEED TO BE CHANGED DAILY.
[2021-01-08 06:49] LABS: Anion Gap 16 (12-20); Calcium 8.4 mg/dL (8.4-10.2); Carbon Dioxide 12 mmol/L (22-29); Chloride 113 mmol/L (96-108); Creatinine Clr Calc Pharmacy 19.8; Estimated Glomerular Filt Rate 18; Glucose Random 91 mg/dL (60-115); Sodium 136 mmol/L (135-145)
[2021-01-08 06:50] LABS: Blood Urea Nitrogen 96 mg/dL (9-16)
[2021-01-08 06:57] LABS: Basophils Percent Auto 0.2 % (0-2); Eosinophils Absolute Auto 0.1 X10*3/uL (0.0-0.4); Eosinophils Percent Auto 0.5 % (0-4); Hematocrit 29.8 % (42-52); Hemoglobin 8.9 g/dl (14.0-18.0); Imm Gran Abs Auto 0.12 X10*3/uL (0.00-0.03); Lymphocytes Absolute Auto 0.7 X10*3/uL (1.2-4.9); Lymphocytes Percent Auto 5.8 % (20-40); MANUAL DIFF FLAG SCAN; Mean Corpuscular HGB Conc 29.9 g/dl (31.0-36.0); Mean Corpuscular Hemoglobin 23.8 pg (27.0-33.0); Mean Corpuscular Volume 79.7 fL (80-98); Mean Platelet Volume 9.7 fL (9.4-12.4); Monocytes Absolute Auto 1.4 X10*3/uL (0.1-1.2); Monocytes Percent Auto 12.3 % (2-11); Neutrophils Absolute Auto 9.4 X10*3/uL (2.0-8.3); Neutrophils Percent Auto 80.2 % (45-73); Platelet Count 232 X10*3/uL (160-400); Red Blood Count 3.74 X10*6/uL (4.60-5.80); Red Cell Distribution Width 16.7 % (11.0-16.0); SCAN SMEAR FLAG 1; White Blood Count 11.7 X10*3/uL (4.8-10.8)
[2021-01-08] MEDS: 0.9 % Sodium Chloride 1,000 ML 80 ML IVCONT ×2 (07:16→20:30)
[2021-01-08 07:22] LABS: Glucose, Whole Blood 82 mg/dL (60-115)
--- NOTE | 2021-01-08 07:24 | PC.NURSE ---
PT SLEEPING BUT EASILY AROUSABLE, RESPIRATIONS EVEN AND UNLABORED. PT DENIES PAIN AT THIS TIME. RUIZ IN PLACE AND ONLY ABOUT 300CC OF URINE IN THE BAG, VISIBLE SEDIMENT IN THE RUIZ TUBING. PT'S ORAL MUCOSAL VERY D DRY, POC OF 82 THIS MORNING. PT SET UP WITH BREAKFAST KALE AND ENCOURAGED TO EAT SOME OF HIS BREAKFAST. PT DID REPORT THAT HE IS NOT THAT HUNGRY. NS INFUSING AT 80ML/HR
[2021-01-08 07:28] LABS: SLIDE REVIEW VERIFIED
--- NOTE | 2021-01-08 07:33 | PC.NURSE ---
FAXED AND CALLED MED/SURG AWAITING A CALL BACK
[2021-01-08] MEDS: 0.9 % Sodium Chloride Flush 3 ML SYRINGE IVFLUSH ×2 (08:17)
--- NOTE | 2021-01-08 08:34 | HO.PM.IMPN ---
Subjective Subjective Date of Service: 01/08/21 Interval History: no diarrhea yet today Respiratory Respiratory: Reports no additional respiratory complaints Gastrointestinal Gastrointestinal: Reports no additional gastrointestinal complaints Physical Exam Vital Signs: Vital Signs: Last Vital Signs Temp 98.5 F 01/08/21 07:14 Pulse 60 01/08/21 07:14 Resp 16 01/08/21 07:14 BP 107/45 L 01/08/21 07:14 Pulse Ox 98 01/08/21 07:14 Body Mass Index 26.9 General: AO X 3, no acute distress Resp: CTA bilateral CVS: S1,S2,RRR GI: soft, non tender, non distended Neuro: paraplegia Psych: appropriate affect Objective Data Current Medications Generic Name Dose Route Start Last Admin Trade Name Freq PRN Reason Stop Dose Admin Heparin Sodium (Porcine) 5,000 unit 01/07/21 17:48 01/08/21 04:26 Heparin Sodium,Porcine 5,000 Unit/Ml Vial SUBCUT 5,000 unit Q8H MAGDALENA Administration Sodium Chloride 1,000 mls @ 80 mls/hr 01/07/21 17:48 01/08/21 07:16 Ns IVCONT 80 mls/hr .[id number] MAGDALENA Administration Sodium Chloride 1,000 mls @ 100 mls/hr 01/26/21 00:00 Ns IVCONT .Q10H MAGDALENA Insulin Human Lispro 0 unit 01/07/21 17:48 01/08/21 07:17 Insulin Lispro 100 Unit/Ml 3 Ml Vial SUBCUT Not Given QIDACHS [facility] Protocol Sodium Chloride 3 ml 01/07/21 17:48 01/08/21 08:17 0.9 % Sodium Chloride Flush 3 Ml Syringe IVFLUSH 3 ml QSHIFT MAGDALENA Administration Labs CBC & Chem 7: 01/08/21 06:09 01/08/21 06:09 Microbiology Microbiology Results: Microbiology 01/07/21 16:48 Urine clean catch - Clean Catch Midstream Urine Culture - Preliminary Gram negative felix Assessment and Plan (1) Status post tricuspid valve replacement: Status: Acute (2) Status post aortic valve replacement with bioprosthetic valve: Status: Acute Assessment and Plan: 75M presented with diarrhea, found to have Gemma and hyperkalemia diarrhea has not had further stool to send sample yet check cdif, if negative will use imodium GEMMA on CKD IV complicated by hyperkalemia due to diarrhea s/p 15gm kayexylate hold lisinopril, losartan, K supplements, lopressor, metformin, lasix GEMMA improving (creatinine from 3.79 to 3.32, baseline around 2?) hyperkalemia resolved (was 6, now 5) continue IV fluids monitor bmp nephro eval hypotension hypovolemic improved DM hold metformin insulin sliding scale paraplegia usually self catheterizes, indwelling [place] while inpatient PVD outpatient follow up with dr Tanner
--- NOTE | 2021-01-08 10:24 | MHC.CM.PN ---
NURSE BI DATA ARCHITECT NOTE ELECTRONIC MEDICAL RECORD REVIEQWED ALONG WITH CASE DISCUSSED WITH STAFF NURSE, MET WITH PATIENT HE REPORTED HE HAS A HEALTH CARE PROXY REQUESTED A COPY OF THE HCP TO BE BROUGHT IN. HE REPORTS THAT HE HAD A T 11-12 SPINAL CIORD INJURY, ABOUT 3 YRS AGO , HE DESCRIBES HIMSELF ACTIVE, AND HAS GAINED INDEPENDENCE DESPITE HIS SPINAL CORD INJURY HE REPORTED HE WENT TO THE [facility] FOR REHAB AFTER HIS INJURY, HE HAS [facility] FOR THE [facility] WITH NURSING 2 X WEEK, HE HAS NO OTHER SERVICES IN THE HOME HE SELF DOES STRAIGHT CATHETERIZES HIUMSELF, AND THE SUPPLIES ARE OBTAINED THROUGH THE [facility]. HE REPORTED HIS HOME I S HANDICAP ACCESSABLE HE DOES HIS OWN TRANSFERS FROM BED TO CHAIR ,OR WHEELCHIR , HE CONTINUES TO DRIVE HE HAS A WHEELCHIAR , AND REQUESTED HIS TO BRING IT IN. HE HAS NO OTHER SRRVICES IN THE HOME, PATIENT IS CONCERNED BECAUSE HE HAs BECOME WEAKNED and does not want to loose is indeoendence, he asked to see if the staff could get him up to the [facility] this was voiced to the patients nurse discharge plan home with his with resumoption of his [employer] van for nrusing self resumption of the [facility] wound [facility] transport family pcp dr melba marte
[2021-01-08 11:20] LABS: Glucose, Whole Blood 131 mg/dL (60-115)
--- NOTE | 2021-01-08 13:57 | PM.CNNEP ---
History of Present Illness Reason for Consult Consult date: 01/08/21 Reason for consult: GEMMA Chief Complaint Chief complaint: Diarrhea GEMMA History of Present Illness Narrative: Ask to c PT for GEMMA on CKD in setting of diarrhea. Diarrhea onset approx 10 days ago that he attributes to taking a new med--zaroxlyn-- which he only took 1 dose of. He was having incr SOB and the zaroxlyn was added to his us maintenence lasix. He is a paraplegic and st cath himself 3x/day routimnely for years. His diarrhea has improved. He denies taking NSAIDs or any other change in his meds. Review of Systems Review of Systems Constitutional: Denies fever, denies Chills Eyes: denies blurry vision ENT: denies sore throat CVS: denies chest pain Respiratory: Denies dyspnea GI: diarrhea : denies dysuria MSK: denies neck pain Skin: denies rash Neuro: denies specific motor weakness Psych: denies suicidal ideation Endocrine: denies heat/cold intoleratnce Hematologic: denies easy bleeding Allergy: denies hives Respiratory: Reports no additional respiratory complaints Gastrointestinal: Reports no additional gastrointestinal complaints [facility] Past Medical History Medical History (Updated 01/08/21 @ 08:59 by Hiram Le MD) Bacterial endocarditis Chronic right heart failure Diabetes Endocarditis Essential hypertension Mitral and aortic heart valve diseases, unspecified Normally functioning cardiac pacemaker present Pacemaker Paraplegia 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 Typical atrial flutter Family History Family history: reviewed and not pertinent Surgical History Surgical History Status post aortic valve replacement with bioprosthetic valve Status post tricuspid valve replacement Social History Social History Household Members: Significant Other Alcohol intake: never Smoked in Last 30 Days: No Use of substances other than those prescribed or required for medical reasons: No Advance Directives: Yes Advance Directives Information Provided: No Advance Directives on File: No service: Yes Current occupational status: retired Meds Allergies Allergy/AdvReac Type Severity Reaction Status Date / Time linezolid [From Zyvox] AdvReac Severe SEVERE Verified 12/22/20 13:07 STOMACH PAIN cefuroxime [CEFUROXIME] AdvReac Intermediate GI SYMPTOMS Verified 12/22/20 13:07 Doxycycline Hyclate Allergy Unknown Unknown Uncoded 12/22/20 13:07 Active Medications: Current Medications Generic Name Dose Route Start Last Admin Trade Name Linda PRN Reason Stop Dose Admin Heparin Sodium (Porcine) 5,000 unit 01/07/21 17:48 01/08/21 12:21 Heparin Sodium,Porcine 5,000 Unit/Ml Vial SUBCUT 5,000 unit Q8H MAGDALENA Administration Sodium Chloride 1,000 mls @ 80 mls/hr 01/07/21 17:48 01/08/21 07:16 Ns IVCONT 80 mls/hr .[id number] MAGDALENA Administration Sodium Chloride 1,000 mls @ 100 mls/hr 01/26/21 00:00 Ns IVCONT .Q10H MAGDALENA Insulin Human Lispro 0 unit 01/07/21 17:48 01/08/21 12:21 Insulin Lispro 100 Unit/Ml 3 Ml Vial SUBCUT Not Given QIDACHS MAGDALENA Protocol Sodium Chloride 3 ml 01/07/21 17:48 01/08/21 08:17 0.9 % Sodium Chloride Flush 3 Ml Syringe IVFLUSH 3 ml QSHIFT MAGDALENA Administration Home Medications Medication Instructions Recorded Confirmed Last Taken Type ascorbic acid (vitamin C) 500 mg mg PO 09/18/20 12/28/20 Unknown History capsule calcium citrate 200 mg (950 mg) 200 mg PO DAILY 09/18/20 12/28/20 Unknown History tablet cholecalciferol (vitamin D3) 50 50 mcg PO DAILY 09/18/20 12/28/20 Unknown History mcg (2,000 unit) capsule furosemide 40 mg tablet 40 mg PO DAILY tab 09/18/20 12/28/20 Unknown History losartan 50 mg tablet 50 mg PO BID tab 09/18/20 01/07/21 Unknown History metformin 500 mg tablet 500 mg PO BID 09/18/20 01/07/21 Unknown History metoprolol tartrate 25 mg tablet See Rx Instructions PO .COMPLEX 09/18/20 01/07/21 Unknown History multivitamin 1 tab PO DAILY 09/18/20 12/28/20 Unknown History potassium chloride 20 mEq 20 meq PO DAILY tab 09/18/20 12/28/20 Unknown History tablet,extended release(part/cryst) collagenase clostridium histo. 1 applic TOPICAL DAILY 01/07/21 01/07/21 Unknown History [Santyl] metolazone 2.5 mg PO 01/07/21 Unknown History Physical Exam Vital Signs: Last Vital Signs Temp 97.0 F 01/08/21 11:27 Pulse 62 01/08/21 11:27 Resp 20 01/08/21 11:27 BP 112/43 L 01/08/21 11:27 Pulse Ox 97 01/08/21 11:27 Body Mass Index 26.9 Results Lab Results Result Diagrams: 01/08/21 06:09 01/08/21 06:09 Lab results: Chemistry 01/07/21 01/07/21 01/08/21 11:21 18:22 06:09 Sodium 130 L 133 L 136 Potassium 6.0 H* 5.3 H 5.0 Carbon Dioxide 12 L 12 L 12 L BUN 104 H* 98 H* 96 H* Creatinine 3.79 H 3.60 H 3.32 H Calcium 8.7 8.3 L 8.4 Hematology 01/07/21 01/08/21 11:21 06:09 WBC 13.7 H 11.7 H Hgb 9.7 L 8.9 L Plt Count 267 232 Urinalysis 01/07/21 16:35 Urine Color YELLOW Urine Appearance CLOUDY Urine pH 5.5 Ur Specific [place] 1.020 Urine Protein TRACE Urine Glucose (UA) NEG Urine Ketones NEG Urine Blood 1+ H Urine Nitrite NEG Ur Leukocyte Esterase 2+ H Urine RBC 1-4 Urine WBC TNTC H Ur Squamous Epith Cells 1+ Assessment and Plan (1) Status post tricuspid valve replacement: Status: Acute (2) Status post aortic valve replacement with bioprosthetic valve: Status: Acute 75M presented with diarrhea, found to have Gemma and hyperkalemia 1. GEMMA: SCr cont grad decr off his ARB and diuretics and with IVF c/w renal hypoperfsuion event vs mulitfact ATN; less likely AGN or AIN; Obs uropathy from not st cath as freq as he should is a possibility 2. CKD 3b: bsl SCr 1.8-2.0: supsect from DN and/or Obs uropathy 3. HtyperK: resolved off cozaar 4. DM: on metfromin which I would avoid in future given his CKD REC: urine and sero studies as ordered and renal U/S; avoid NToxins; cont to hold diuretics for now Will follow with team
--- NOTE | 2021-01-08 14:09 | MHC.CLN ---
RE: CONSULT PT WITH INCREASED NUTRITION RISK R/T PRESSURE INJURIES RECOMMEND INCREASING DIET TO 2200DM TO MEET NEEDS WILL START ENSURE TID, TASIA BID AND PROSOURCE Q DAY TO PROVIDE 1270KCALS, 80G PROTEIN TO PROMOTE WOUND HEALING MONITOR PO INTAKE CLOSELY SEE ALSO CLINICAL NUTRITION ASSESSMENT
--- NOTE | 2021-01-08 14:55 | P.CONWO_ITS ---
History of Present Illness Data of Consult Service Date: 01/08/21 Requesting physician: Jericho Johnson Primary Care Provider: Dimitri Cantu MD [facility] Reason for consult: Chronic wounds of the left ischium and right foot 75-year-old male well known to the wound clinic with renal insufficiency admitted for dehydration after significant diarrhea as a medication side effect. History of osteomyelitis of the ischium. Seen by infectious disease in the past. Treated with various medications for MRSA including Zyvox. Had a recent beta naturetic peptide that suggested heart failure in the 600s. EF looking to be about 55% on bedside US by Dr. Mena. Wounds of the ischium and and right foot are longstanding. A recent intervention from Dr. Tanner was pursued RLE. Review of Systems Review of Systems: feels dry, having diarrhea preceded by cramping. 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 Typical atrial flutter Family history: reviewed and not pertinent Surgical History Status post aortic valve replacement with bioprosthetic valve Status post tricuspid valve replacement Social History Household Members: Significant Other Housing: House Do you presently have visiting nurse or other home services: Yes Alcohol intake: never Smoking Status: Never smoker Smoked in Last 30 Days: No Second Hand Smoke Exposure: No Use of substances other than those prescribed or required for medical reasons: No Currently Displaying Signs/Symptoms of Drug Intoxication Withdrawal: No Have you been hit, kicked, punched, or otherwise hurt by someone within the past year? If so, by whom?: No Do you feel safe in your current relationship?: Yes Is there a partner from a previous relationship who is making you feel unsafe now?: No Are you made to feel afraid or neglected: No Advance Directives: No Advance Directives Information Provided: No Advance Directives on File: No Do you have thoughts of harming others: None Do you have a plan to hurt others: No Plan Recently lost weight without trying: Yes How much weight loss: 2-13 pounds Eating poorly because of decreased appetite: Yes Nutrition screen score: 4 Nutrition Risks: No Nutritional Risk Poor oral hygiene: No service: Yes Current occupational status: retired Meds Allergies Allergy/AdvReac Type Severity Reaction Status Date / Time linezolid [From Zyvox] AdvReac Severe SEVERE Verified 12/22/20 13:07 STOMACH PAIN cefuroxime [CEFUROXIME] AdvReac Intermediate GI SYMPTOMS Verified 12/22/20 13:07 Doxycycline Hyclate Allergy Unknown Unknown Uncoded 12/22/20 13:07 Active Medications: Current Medications Generic Name Dose Route Start Last Admin Trade Name Freq PRN Reason Stop Dose Admin Heparin Sodium (Porcine) 5,000 unit 01/07/21 17:48 01/08/21 12:21 Heparin Sodium,Porcine 5,000 Unit/Ml Vial SUBCUT 5,000 unit Q8H MAGDALENA Administration Sodium Chloride 1,000 mls @ 80 mls/hr 01/07/21 17:48 01/08/21 07:16 Ns IVCONT 80 mls/hr .[id number] MAGDALENA Administration Sodium Chloride 1,000 mls @ 100 mls/hr 01/26/21 00:00 Ns IVCONT .Q10H MAGDALENA Insulin Human Lispro 0 unit 01/07/21 17:48 01/08/21 12:21 Insulin Lispro 100 Unit/Ml 3 Ml Vial SUBCUT Not Given QIDACHS MAGDALENA Protocol Sodium Chloride 3 ml 01/07/21 17:48 01/08/21 08:17 0.9 % Sodium Chloride Flush 3 Ml Syringe IVFLUSH 3 ml QSHIFT MAGDALENA Administration Home Medications Medication Instructions Recorded Confirmed Last Taken Type ascorbic acid (vitamin C) 500 mg mg PO 09/18/20 12/28/20 Unknown History capsule calcium citrate 200 mg (950 mg) 200 mg PO DAILY 09/18/20 12/28/20 Unknown History tablet cholecalciferol (vitamin D3) 50 50 mcg PO DAILY 09/18/20 12/28/20 Unknown History mcg (2,000 unit) capsule furosemide 40 mg tablet 40 mg PO DAILY tab 09/18/20 12/28/20 Unknown History losartan 50 mg tablet 50 mg PO BID tab 09/18/20 01/07/21 Unknown History metformin 500 mg tablet 500 mg PO BID 09/18/20 01/07/21 Unknown History metoprolol tartrate 25 mg tablet See Rx Instructions PO .COMPLEX 09/18/20 Unknown History multivitamin 1 tab PO DAILY 09/18/20 12/28/20 Unknown History potassium chloride 20 mEq 20 meq PO DAILY tab 09/18/20 12/28/20 Unknown History tablet,extended release(part/cryst) collagenase clostridium histo. 1 applic TOPICAL DAILY 01/07/21 01/07/21 Unknown History [Santyl] metolazone 2.5 mg PO 01/07/21 Unknown History Physical Exam Vital Signs and Narrative: Vital Signs: Last Vital Signs Temp 97.0 F 01/08/21 11:27 Pulse 62 01/08/21 11:27 Resp 20 01/08/21 11:27 BP 112/43 L 01/08/21 11:27 Pulse Ox 97 01/08/21 11:27 Body Mass Index 26.9 Picture is were taken by the nursing staff. The right heel wound has an island of eschar which is purpose fully left in place for now to avoid calcaneus exposure. There is more maceration of the periwound of the heel and a moderate amount of slough on the wound bed. The left ischial wound is significantly worse than when I saw it last Friday. There was intact ischial tuberosity with a smooth bony surface beginning to cover with new tissue. Today there are fragments of bone free floating within the wound bed. I can palpate exposed veregated bone material attached to the ischial tuberosity which is likely to be infected. This is a significant change compared to the usual look of this wound. There is a fair amount of sanguineous drainage. There is no purulence or odor. Results Labs CBC and Chem 7: 01/08/21 06:09 01/08/21 06:09 Labs: Laboratory Results - last 24 hr 01/07/21 01/07/21 01/07/21 12:51 16:35 18:22 MCV MCH MCHC RDW Plt Count MPV Immature Gran % (Auto) Neut % (Auto) Lymph % (Auto) [place] % (Auto) Eos % (Auto) Baso % (Auto) Lymph # (Auto) [place] # (Auto) Eos # (Auto) Baso # (Auto) Abs Immat Gran (auto) Absolute Neuts (auto) Absolute Nucleated RBC Nucleated RBC % (auto) Smear Tech's Comments Anion Gap 16 Estim Creat Clear Calc 18.3 Estimated GFR 17 POC Glucose Random Glucose 129 H Calcium 8.3 L Urine Color YELLOW Urine Appearance CLOUDY Urine pH 5.5 Ur Specific [place] 1.020 Urine Protein TRACE Urine Glucose (UA) NEG Urine Ketones NEG Urine Blood 1+ H Urine Nitrite NEG Ur Leukocyte Esterase 2+ H Urine RBC 1-4 Urine WBC TNTC H Ur Squamous Epith Cells 1+ Urine Bacteria 3+ Coronavirus (PCR) NEGATIVE Influenza Type A (PCR) NEGATIVE Influenza Type B (PCR) NEGATIVE RSV RNA Qual (PCR) NEGATIVE 01/07/21 01/08/21 01/08/21 20:41 06:09 06:09 MCV 79.7 L MCH 23.8 L MCHC 29.9 L RDW 16.7 H Plt Count 232 MPV 9.7 Immature Gran % (Auto) 1.0 H Neut % (Auto) 80.2 H Lymph % (Auto) 5.8 L [place] % (Auto) 12.3 H Eos % (Auto) 0.5 Baso % (Auto) 0.2 Lymph # (Auto) 0.7 L [place] # (Auto) 1.4 H Eos # (Auto) 0.1 Baso # (Auto) 0.0 Abs Immat Gran (auto) 0.12 H Absolute Neuts (auto) 9.4 H Absolute Nucleated RBC 0.000 Nucleated RBC % (auto) 0.0 Smear Tech's Comments VERIFIED Anion Gap 16 Estim Creat Clear Calc 19.8 Estimated GFR 18 POC Glucose 114 Random Glucose 91 Calcium 8.4 Urine Color Urine Appearance Urine pH Ur Specific [place] Urine Protein Urine Glucose (UA) Urine Ketones Urine Blood Urine Nitrite Ur Leukocyte Esterase Urine RBC Urine WBC Ur Squamous Epith Cells Urine Bacteria Coronavirus (PCR) Influenza Type A (PCR) Influenza Type B (PCR) RSV RNA Qual (PCR) 01/08/21 01/08/21 07:08 11:15 MCV MCH MCHC RDW Plt Count MPV Immature Gran % (Auto) Neut % (Auto) Lymph % (Auto) [place] % (Auto) Eos % (Auto) Baso % (Auto) Lymph # (Auto) [place] # (Auto) Eos # (Auto) Baso # (Auto) Abs Immat Gran (auto) Absolute Neuts (auto) Absolute Nucleated RBC Nucleated RBC % (auto) Smear Tech's Comments Anion Gap Estim Creat Clear Calc Estimated GFR POC Glucose 82 131 H Random Glucose Calcium Urine Color Urine Appearance Urine pH Ur Specific [place] Urine Protein Urine Glucose (UA) Urine Ketones Urine Blood Urine Nitrite Ur Leukocyte Esterase Urine RBC Urine WBC Ur Squamous Epith Cells Urine Bacteria Coronavirus (PCR) Influenza Type A (PCR) Influenza Type B (PCR) RSV RNA Qual (PCR) Assessment and Plan (1) Pressure ulcer of left buttock, stage 4: Start date: 01/08/21 Status: Acute Both the left buttock and right heel ulcers are long-standing, present for several months and followed at the [facility] Care [facility] on outpatient basis. There is a marked decline in the integrity of the left ischial wound. Repacked with direct fibrous Ag alginate with a supra absorbent dressing brought in by the family. We should do this daily. Orders will be placed in this regard. My concern is that the bone fragments are brand new and need to be surgically debrided. I would recommend a consult from general surgery for operative debridement of infected bone possible bone debridement of ischial tuberosity. Consider Infectious Disease involvement for treatment of presumed osteomyelitis, particularly if bone samples can be obtained and cultured. Note that the patient has had significant difficulties tolerating antibiotics for MRSA in the past by way of abdominal pain, diarrhea, and dehydration. Additionally, after speaking with the family, the patient may decline surgical intervention and prefer a more palliative course but consult should be pursued none the less. (2) Pressure ulcer of right heel, unstageable: Start date: 01/08/21 Status: Acute Right heel ulcer long-standing. Alginate cut to fit. Betadine paint to the toes into the eschar covering the calcaneus. Supra absorb refer drainage provided by the family. Change daily.
[2021-01-08 15:39] LABS: CDIFF Ag Negative (Negative); CDIFF Internal ctrl Dots and bkg OK (V); CDiff Toxin Negative (Negative)
[2021-01-08 16:34] LABS: Glucose, Whole Blood 159 mg/dL (60-115)
[2021-01-08 17:12] LABS: Creatinine Urine 87.09 mg/dL; Total Protein Urine Random 50 mg/dL (<12)
[2021-01-08] MEDS: Insulin Lispro 100 UNIT/ML 3 ML VIAL SUBCUT ×2 (17:19→20:29)
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
[2021-01-08 20:30] LABS: Glucose, Whole Blood 154 mg/dL (60-115)
[2021-01-09] MEDS: Heparin Sodium,Porcine 5,000 UNIT/ML VIAL 5000 UNIT SUBCUT ×3 (02:42→16:49)
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
[2021-01-09 03:36] VITALS: BP 124/54; PULSE 61; RESP 20; TEMP 36.5; O2SAT 96
[2021-01-09 05:45] LABS: MANUAL DIFF FLAG NO
[2021-01-09 05:51] LABS: Basophils Percent Auto 0.1 % (0-2); Eosinophils Absolute Auto 0.1 X10*3/uL (0.0-0.4); Eosinophils Percent Auto 1.1 % (0-4); Hematocrit 28.3 % (42-52); Hemoglobin 8.8 g/dl (14.0-18.0); Imm Gran Abs Auto 0.08 X10*3/uL (0.00-0.03); Imm Gran Pct Auto 0.8 % (0.0-0.4); Lymphocytes Absolute Auto 1.1 X10*3/uL (1.2-4.9); Lymphocytes Percent Auto 10.4 % (20-40); Mean Corpuscular HGB Conc 31.1 g/dl (31.0-36.0); Mean Corpuscular Hemoglobin 24.2 pg (27.0-33.0); Mean Corpuscular Volume 77.7 fL (80-98); Mean Platelet Volume 9.5 fL (9.4-12.4); Monocytes Absolute Auto 1.5 X10*3/uL (0.1-1.2); Monocytes Percent Auto 14.8 % (2-11); Neutrophils Absolute Auto 7.4 X10*3/uL (2.0-8.3); Neutrophils Percent Auto 72.8 % (45-73); Platelet Count 249 X10*3/uL (160-400); Red Blood Count 3.64 X10*6/uL (4.60-5.80); Red Cell Distribution Width 16.7 % (11.0-16.0); White Blood Count 10.1 X10*3/uL (4.8-10.8)
[2021-01-09 06:38] LABS: Anion Gap 12 (12-20); Calcium 8.5 mg/dL (8.4-10.2); Carbon Dioxide 14 mmol/L (22-29); Chloride 115 mmol/L (96-108); Estimated Glomerular Filt Rate 22; Glucose Fasting 147 mg/dL (60-99); Potassium 4.9 mmol/L (3.3-5.1); Sodium 136 mmol/L (135-145)
[2021-01-09 06:40] LABS: Blood Urea Nitrogen 93 mg/dL (9-16)
[2021-01-09 07:36] VITALS: BP 130/60; PULSE 70; RESP 18; TEMP 36.4; O2SAT 98
[2021-01-09 07:41] LABS: Glucose, Whole Blood 135 mg/dL (60-115)
[2021-01-09 07:56] LABS: EOS Counted 0 CELLS; EOS QC POS YES; EOS Stain Quality OK YES; WBC, Counted 100 CELLS
[2021-01-09 08:53] LABS: Magnesium 2.1 mg/dL (1.6-2.6)
--- NOTE | 2021-01-09 10:04 | PM.CNNEP ---
History of Present Illness Reason for Consult Consult date: 01/09/21 Reason for consult: GEMMA Chief Complaint Chief complaint: Diarrhea GEMMA History of Present Illness Narrative: 75 y/o male long-standing h/o CKD baseline creatinine approx 2.2-2.4 mg/dL with subnephrotic proteinuria followed by my partner Cullen Mcdonald at our [facility] office. Patient was seen in error by another provider yesterday. 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 Admitted with 2 weeks diarrhea watery and single dose metolazone for some left sided congestion symptoms last week with creatinine rise to 3.4 mg/dL. Diuretics on hold, cdif negative. Receiving IV NS feeling better but diarrhea remains a major issue. 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 Typical atrial flutter Family History Family history: reviewed and not pertinent Surgical History Surgical History Status post aortic valve replacement with bioprosthetic valve Status post tricuspid valve replacement Social History Social History Household Members: Significant Other Housing: House Do you presently have visiting nurse or other home services: Yes Alcohol intake: never Smoking Status: Never smoker Smoked in Last 30 Days: No Second Hand Smoke Exposure: No Use of substances other than those prescribed or required for medical reasons: No Currently Displaying Signs/Symptoms of Drug Intoxication Withdrawal: No Have you been hit, kicked, punched, or otherwise hurt by someone within the past year? If so, by whom?: No Do you feel safe in your current relationship?: Yes Is there a partner from a previous relationship who is making you feel unsafe now?: No Are you made to feel afraid or neglected: No Advance Directives: No Advance Directives Information Provided: No Advance Directives on File: No Do you have thoughts of harming others: None Do you have a plan to hurt others: No Plan Recently lost weight without trying: Yes How much weight loss: 2-13 pounds Eating poorly because of decreased appetite: Yes Nutrition screen score: 4 Nutrition Risks: No Nutritional Risk Poor oral hygiene: No service: Yes Current occupational status: retired Meds Allergies Allergy/AdvReac Type Severity Reaction Status Date / Time linezolid [From Zyvox] AdvReac Severe SEVERE Verified 12/22/20 13:07 STOMACH PAIN cefuroxime [CEFUROXIME] AdvReac Intermediate GI SYMPTOMS Verified 12/22/20 13:07 Doxycycline Hyclate Allergy Unknown Unknown Uncoded 12/22/20 13:07 Active Medications: Current Medications Generic Name Dose Route Start Last Admin Trade Name Freq PRN Reason Stop Dose Admin Heparin Sodium (Porcine) 5,000 unit 01/07/21 17:48 01/09/21 09:05 Heparin Sodium,Porcine 5,000 Unit/Ml Vial SUBCUT 5,000 unit Q8H [facility] Administration Sodium Chloride 1,000 mls @ 80 mls/hr 01/07/21 17:48 01/09/21 09:00 Ns IVCONT Infused .[id number] [facility] Infusion Sodium Chloride 1,000 mls @ 100 mls/hr 01/26/21 00:00 Ns IVCONT .Q10H [facility] Insulin Human Lispro 0 unit 01/07/21 17:48 01/09/21 07:34 Insulin Lispro 100 Unit/Ml 3 Ml Vial SUBCUT Not Given QIDACHS [facility] Protocol Loperamide HCl 2 mg 01/09/21 09:21 Loperamide Hcl 2 Mg Capsule PO Q4H PRN diarrhea Sodium Chloride 3 ml 01/07/21 17:48 01/09/21 07:01 0.9 % Sodium Chloride Flush 3 Ml Syringe IVFLUSH Not Given QSHIFT [facility] Home Medications Medication Instructions Recorded Confirmed Last Taken Type ascorbic acid (vitamin C) 500 mg mg PO 09/18/20 12/28/20 Unknown History capsule calcium citrate 200 mg (950 mg) 200 mg PO DAILY 09/18/20 12/28/20 Unknown History tablet cholecalciferol (vitamin D3) 50 50 mcg PO DAILY 09/18/20 12/28/20 Unknown History mcg (2,000 unit) capsule furosemide 40 mg tablet 40 mg PO DAILY tab 09/18/20 12/28/20 Unknown History losartan 50 mg tablet 50 mg PO BID tab 09/18/20 01/07/21 Unknown History metformin 500 mg tablet 500 mg PO BID 09/18/20 01/07/21 Unknown History metoprolol tartrate 25 mg tablet See Rx Instructions PO .COMPLEX 09/18/20 01/07/21 Unknown History multivitamin 1 tab PO DAILY 09/18/20 12/28/20 Unknown History potassium chloride 20 mEq 20 meq PO DAILY tab 09/18/20 12/28/20 Unknown History tablet,extended release(part/cryst) collagenase clostridium histo. 1 applic TOPICAL DAILY 01/07/21 01/07/21 Unknown History [Santyl] metolazone 2.5 mg PO 01/07/21 Unknown History Physical Exam Vital Signs: Last Vital Signs Temp 97.5 F 01/09/21 07:36 Pulse 70 01/09/21 07:36 Resp 18 01/09/21 07:36 BP 130/60 01/09/21 07:36 Pulse Ox 98 01/09/21 07:36 Body Mass Index 26.9 Const General: cooperative HENGA Head: Yes normal to inspection Eyes General: appearance normal, both eyes and all related structures Neck Lymphatic: no lymphadenopathy noted Chest Chest palpation & inspection: normal inspection of the chest Resp Effort & Inspection: able to speak in complete sentences and no respiratory distress Cardio Jugular venous distension: JVD Rhythm: regular rhythm GI Inspection: Yes normal to inspection Skin General skin exam: no rashes or lesions noted Extrem Right upper extremity: edema (to knees bilaterally) Results Lab Results Result Diagrams: 01/09/21 05:34 01/09/21 05:34 Lab results: Chemistry 01/07/21 01/07/21 01/08/21 11:21 18:22 06:09 Sodium 130 L 133 L 136 Potassium 6.0 H* 5.3 H 5.0 Carbon Dioxide 12 L 12 L 12 L BUN 104 H* 98 H* 96 H* Creatinine 3.79 H 3.60 H 3.32 H Calcium 8.7 8.3 L 8.4 01/09/21 05:34 Sodium 136 Potassium 4.9 Carbon Dioxide 14 L BUN 93 H* Creatinine 2.86 H Calcium 8.5 Hematology 01/07/21 01/08/21 01/09/21 11:21 06:09 05:34 WBC 13.7 H 11.7 H 10.1 Hgb 9.7 L 8.9 L 8.8 L Plt Count 267 232 249 Urinalysis 01/07/21 16:35 Urine Color YELLOW Urine Appearance CLOUDY Urine pH 5.5 Ur Specific [place] 1.020 Urine Protein TRACE Urine Glucose (UA) NEG Urine Ketones NEG Urine Blood 1+ H Urine Nitrite NEG Ur Leukocyte Esterase 2+ H Urine RBC 1-4 Urine WBC TNTC H Ur Squamous Epith Cells 1+ Urine Studies 01/08/21 16:29 Urine Creatinine 87.09 Assessment and Plan (1) Acute kidney injury (GEMMA) with acute tubular necrosis (ATN): Status: Acute Hypoperfusion gemma in setting of 2 weeks watery diarrhea and diuretic use. Creatinine improving nicely with IVF and no signs of left sided heart failure - would consider running ivf for another 24h and d/c in am - consider changing to isotonic bicarbonate infusion (150 meq NaBicarb in liter d5w) to correct metabolic acidosis from GI losses and impaired ability to acidify urine in setting of gemma on advanced CKD - dosing meds for eGFR < 30 mL/min - await stool studies and consider GI eval as well as using cholestyramine if necessary. ? lymphocytic colitis given age - newton for now - straight cath at home (2) Chronic right heart failure: Status: Acute - holding diuretics for now given his ongoing diarrhea but anticipate resuming in next 48h or so - case d/w Dr. Woodard
[2021-01-09 11:28] LABS: Glucose, Whole Blood 191 mg/dL (60-115)
[2021-01-09 11:31] VITALS: BP 159/70; PULSE 61; RESP 19; TEMP 36.6; O2SAT 96
[2021-01-09] MEDS: Insulin Lispro 100 UNIT/ML 3 ML VIAL SUBCUT ×3 (11:41→20:54)
[2021-01-09] MEDS: Loperamide HCl 2 MG CAPSULE PO ×2 (11:55→16:44)
--- NOTE | 2021-01-09 12:59 | MHC.CM.PN ---
Addendum entered by Margi Buchanan 01/09/21 13:16: CASE DISCUSSED WITH CARE MANAGEMENT DIRECTOR. WOUND CARE, GENERAL SURGEON AND ID PHYSICIAN AND RENAL ARE FOLLOWING THIS PATIENT , ,PLAN CONTINUE TO MONITOR ALL LABS AND MEDICATION ADJUSTMENTS , SURGEO TO TALK WITH PATIENT AND FAMILY REAGRDING POSSIBLE SURGOCAL INTERVENTION CADSE HORTICULTURAL SPECIALTY GROWER FIELD TO CONTINUE TO FOLLOW FOR DISCHARGE CHANGES OR NEEDS Original Note: NURSE GRAPHIC MANAGER NOTE ELECTRONIC MEDICAL RECORD REVIEWED ALONG WITH CASE DISCUSSED WITH STAFF NURSE , PER DOCUMENTATION PATIENT WAS ADMITTED DIARRHEA, ACUTE KIDNEY INJURY , ELECTROLYTE IMBALANCE . PER DOCUMENTATION BY THE ER PHYSICIAN, AND FOLLOWING WOUND CARE CONSULT,AND SURGICAL CONSULT PATIENT HAS (LEFT ISCHIAL WOUND, RIGHT FOOT WOUND LONGSTANDING) L BUTTOCK PRESSURE ULCER
--- NOTE | 2021-01-09 13:04 | HO.PM.IMPN ---
Subjective Subjective Date of Service: 01/09/21 Interval History: diarrhea Physical Exam Vital Signs: Vital Signs: Last Vital Signs Temp 97.9 F 01/09/21 11:31 Pulse 61 01/09/21 11:31 Resp 19 01/09/21 11:31 BP 159/70 H 01/09/21 11:31 Pulse Ox 96 01/09/21 11:31 Body Mass Index 26.9 General: AO X 3, no acute distress Resp: CTA bilateral CVS: S1,S2,RRR GI: soft, non tender, non distended Neuro: paraplegia Psych: appropriate affect skin: see pictures from previous note Objective Data Current Medications Generic Name Dose Route Start Last Admin Trade Name Freq PRN Reason Stop Dose Admin Heparin Sodium (Porcine) 5,000 unit 01/07/21 17:48 01/09/21 09:05 Heparin Sodium,Porcine 5,000 Unit/Ml Vial SUBCUT 5,000 unit Q8H [facility] Administration Sodium Chloride 1,000 mls @ 80 mls/hr 01/07/21 17:48 01/09/21 09:00 Ns IVCONT Infused .[id number] [facility] Infusion Sodium Chloride 1,000 mls @ 100 mls/hr 01/26/21 00:00 Ns IVCONT .Q10H [facility] Insulin Human Lispro 0 unit 01/07/21 17:48 01/09/21 11:41 Insulin Lispro 100 Unit/Ml 3 Ml Vial SUBCUT 2 unit QIDACHS [facility] Administration Protocol Loperamide HCl 2 mg 01/09/21 09:21 01/09/21 11:55 Loperamide Hcl 2 Mg Capsule PO 2 mg Q4H PRN Administration diarrhea Sodium Bicarbonate 650 mg 01/09/21 15:00 Sodium Bicarbonate 650 Mg Tablet PO TID [facility] Sodium Chloride 3 ml 01/07/21 17:48 01/09/21 07:01 0.9 % Sodium Chloride Flush 3 Ml Syringe IVFLUSH Not Given QSHIFT [facility] Labs CBC & Chem 7: 01/09/21 05:34 01/09/21 05:34 Microbiology Microbiology Results: Microbiology 01/07/21 16:48 Urine clean catch - Clean Catch Midstream Urine Culture - Final Klebsiella pneumoniae 01/07/21 12:51 Blood - Venous Blood Culture - Preliminary No growth after 24 hours. 01/07/21 12:51 Blood - Venous Blood Culture - Preliminary No growth after 24 hours. Assessment and Plan (1) Status post tricuspid valve replacement: Status: Acute (2) Status post aortic valve replacement with bioprosthetic valve: Status: Acute Assessment and Plan: 75M presented with diarrhea, found to have Gemma and hyperkalemia diarrhea has not had further stool to send sample yet negative cdif, will use imodium GEMMA on CKD IV complicated by hyperkalemia due to diarrhea s/p 15gm kayexylate 01/07/21 holding lisinopril, losartan, K supplements, lopressor, metformin, lasix GEMMA improving (creatinine from 3.79 to 2.86, baseline around 2?) hyperkalemia resolved (was 6, now 4.9) continue IV fluids, will add oral sodium bicarb monitor bmp nephro following multiple pressure ulcers with likely osteomyelitis surgery and ID eval hypotension hypovolemic improved DM hold metformin insulin sliding scale paraplegia usually self catheterizes, indwelling newton while inpatient PVD outpatient follow up with dr Tanner
--- NOTE | 2021-01-09 13:32 | PM.PNGS ---
Subjective Subjective Date of Service: 01/09/21 Interval history: Denies new complaints Denies pain Good p.o. intake Physical Exam Vital Signs: Vital Signs: Last Vital Signs Temp 97.9 F 01/09/21 11:31 Pulse 61 01/09/21 11:31 Resp 19 01/09/21 11:31 BP 159/70 H 01/09/21 11:31 Pulse Ox 96 01/09/21 11:31 Body Mass Index 26.9 Laboratory Results - last 24 hr 01/08/21 01/08/21 01/08/21 14:00 16:23 16:29 WBC RBC Hgb Hct MCV MCH MCHC RDW Plt Count MPV Immature Gran % (A uto) Neut % (Auto) Lymph % (Auto) [place] % (Auto) Eos % (Auto) Baso % (Auto) Lymph # (Auto) [place] # (Auto) Eos # (Auto) Baso # (Auto) Abs Immat Gran (au to) Absolute Neuts (au to) Absolute Nucleated RBC Nucleated RBC % (a uto) Sodium Potassium Chloride Carbon Dioxide Anion Gap BUN Creatinine Estim Creat Clear Calc Estimated GFR POC Glucose 159 H Fasting Glucose Calcium Magnesium Urine Eosinophils % 0.0 U Random Total Pro tein Urine Creatinine C. difficile Toxin A&B Negative C. difficile Antig en Negative C. difficile Inter pret SEE NOTE 01/08/21 01/08/21 01/09/21 16:29 20:19 05:34 WBC 10.1 RBC 3.64 L Hgb 8.8 L Hct 28.3 L MCV 77.7 L MCH 24.2 L MCHC 31.1 RDW 16.7 H Plt Count 249 MPV 9.5 Immature Gran % (A uto) 0.8 H Neut % (Auto) 72.8 Lymph % (Auto) 10.4 L [place] % (Auto) 14.8 H Eos % (Auto) 1.1 Baso % (Auto) 0.1 Lymph # (Auto) 1.1 L [place] # (Auto) 1.5 H Eos # (Auto) 0.1 Baso # (Auto) 0.0 Abs Immat Gran (au to) 0.08 H Absolute Neuts (au to) 7.4 Absolute Nucleated RBC 0.000 Nucleated RBC % (a uto) 0.0 Sodium Potassium Chloride Carbon Dioxide Anion Gap BUN Creatinine Estim Creat Clear Calc Estimated GFR POC Glucose 154 H Fasting Glucose Calcium Magnesium Urine Eosinophils % U Random Total Pro tein 50 H Urine Creatinine 87.09 C. difficile Toxin A&B C. difficile Antig en C. difficile Inter pret 01/09/21 01/09/21 01/09/21 05:34 07:27 08:09 WBC RBC Hgb Hct MCV MCH MCHC RDW Plt Count MPV Immature Gran % (A uto) Neut % (Auto) Lymph % (Auto) [place] % (Auto) Eos % (Auto) Baso % (Auto) Lymph # (Auto) [place] # (Auto) Eos # (Auto) Baso # (Auto) Abs Immat Gran (au to) Absolute Neuts (au to) Absolute Nucleated RBC Nucleated RBC % (a uto) Sodium 136 Potassium 4.9 Chloride 115 H Carbon Dioxide 14 L Anion Gap 12 BUN 93 H* Creatinine 2.86 H Estim Creat Clear Calc 23.0 Estimated GFR 22 POC Glucose 135 H Fasting Glucose 147 H Calcium 8.5 Magnesium 2.1 Urine Eosinophils % U Random Total Pro tein Urine Creatinine C. difficile Toxin A&B C. difficile Antig en C. difficile Inter pret 01/09/21 11:20 WBC RBC Hgb Hct MCV MCH MCHC RDW Plt Count MPV Immature Gran % (A uto) Neut % (Auto) Lymph % (Auto) [place] % (Auto) Eos % (Auto) Baso % (Auto) Lymph # (Auto) [place] # (Auto) Eos # (Auto) Baso # (Auto) Abs Immat Gran (au to) Absolute Neuts (au to) Absolute Nucleated RBC Nucleated RBC % (a uto) Sodium Potassium Chloride Carbon Dioxide Anion Gap BUN Creatinine Estim Creat Clear Calc Estimated GFR POC Glucose 191 H Fasting Glucose Calcium Magnesium Urine Eosinophils % U Random Total Pro tein Urine Creatinine C. difficile Toxin A&B C. difficile Antig en C. difficile Inter pret Const: General: comfortable and no acute distress Resp: Effort & Inspection: normal respiratory effort Cardio: Rhythm: regular rhythm GI: Palpation (GI): Soft to palpation, not firm and nontender Back/Spine/Pelvis: Other: Right ischial tuberosity large gaping ulcer, deep all the way to the bone, no necrotic areas, no pus at this time, no cellulitis Neuro: Other: Right heel ulcer with eschar about 3 cm in diameter, no cellulitis, no pus Progress Note: A&P Assessment and plan (1) Pressure ulcer of right hip, stage 4: Status: Acute Assessment and Plan: Dressings were changed Deep ulcer in the right hip as described above I had a long discussion with the patient and his at bedside The plan is to continue wound care at this point as the deep ulcer on the right hip appears clean, with no pus, no gangrenous tissue He has an ulcer on the right heel as well with thick eschar As per wound management recommendations - keep eschar in place for now to cover the calcaneus Patient needs good wound care, and frequent assistant executive housekeeper changes Being paraplegic, he is at high risk for more ulcer formation and worsening of current ulcers Good nutrition Will continue to check on a his open wounds Fall Risk Details Current Medications: Current Medications Generic Name Dose Route Start Last Admin Trade Name Freq PRN Reason Stop Dose Admin Heparin Sodium (Porcine) 5,000 unit 01/07/21 17:48 01/09/21 09:05 Heparin Sodium,Porcine 5,000 Unit/Ml Vial SUBCUT 5,000 unit Q8H [facility] Administration Sodium Chloride 1,000 mls @ 80 mls/hr 01/07/21 17:48 01/09/21 09:00 Ns IVCONT Infused .[id number] [facility] Infusion Sodium Chloride 1,000 mls @ 100 mls/hr 01/26/21 00:00 Ns IVCONT .Q10H [facility] Insulin Human Lispro 0 unit 01/07/21 17:48 01/09/21 11:41 Insulin Lispro 100 Unit/Ml 3 Ml Vial SUBCUT 2 unit QIDACHS [facility] Administration Protocol Loperamide HCl 2 mg 01/09/21 09:21 01/09/21 11:55 Loperamide Hcl 2 Mg Capsule PO 2 mg Q4H PRN Administration diarrhea Sodium Bicarbonate 650 mg 01/09/21 15:00 Sodium Bicarbonate 650 Mg Tablet PO TID [facility] Sodium Chloride 3 ml 01/07/21 17:48 01/09/21 07:01 0.9 % Sodium Chloride Flush 3 Ml Syringe IVFLUSH Not Given QSHIFT [facility] Time Spent With Patient Time: Total time spent is greater than 50% in coordination of care (as documented) at patient's floor/unit and/or counseling patient: Time with patient: 15 - 24 minutes
[2021-01-09] MEDS: Sodium Bicarbonate 650 MG TABLET PO ×2 (14:23→20:54)
[2021-01-09 15:43] VITALS: BP 166/74; PULSE 62; RESP 16; TEMP 36.5; O2SAT 98
--- NOTE | 2021-01-09 16:25 | P.CNID_ITS ---
History of Present Illness Data of Consult Service Date: 01/09/21 Requesting physician: Jericho Johnson Primary Care Provider: Dimitri Cantu MD HPI Reason for consult: osteomyelitis ischium,right heel ulcer He presents to hospital with hospital with worsening left ischial ulcer as well as right heel. 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 and two years ago has had PICC line Review of Systems Review of Systems: Yes all other systems are reviewed and are negative [facility] Past Medical History Medical History (Updated 01/09/21 @ 16:37 by Erica Baker MD) Bacterial endocarditis Chronic right heart failure Diabetes Endocarditis Essential hypertension Mitral and aortic heart valve diseases, unspecified Normally functioning cardiac pacemaker present Osteomyelitis Pacemaker Paraplegia Pressure ulcer of right hip, 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 Typical atrial flutter Family History Family history: reviewed and not pertinent Surgical History Surgical History Status post aortic valve replacement with bioprosthetic valve Status post tricuspid valve replacement Social History Social History Household Members: Significant Other Housing: House Do you presently have visiting nurse or other home services: Yes Alcohol intake: never Smoking Status: Never smoker Smoked in Last 30 Days: No Second Hand Smoke Exposure: No Use of substances other than those prescribed or required for medical reasons: No Currently Displaying Signs/Symptoms of Drug Intoxication Withdrawal: No Have you been hit, kicked, punched, or otherwise hurt by someone within the past year? If so, by whom?: No Do you feel safe in your current relationship?: Yes Is there a partner from a previous relationship who is making you feel unsafe now?: No Are you made to feel afraid or neglected: No Advance Directives: No Advance Directives Information Provided: No Advance Directives on File: No Do you have thoughts of harming others: None Do you have a plan to hurt others: No Plan Recently lost weight without trying: Yes How much weight loss: 2-13 pounds Eating poorly because of decreased appetite: Yes Nutrition screen score: 4 Nutrition Risks: No Nutritional Risk Poor oral hygiene: No service: Yes Current occupational status: retired Meds Allergies Allergy/AdvReac Type Severity Reaction Status Date / Time linezolid [From Zyvox] AdvReac Severe SEVERE Verified 12/22/20 13:07 STOMACH PAIN cefuroxime [CEFUROXIME] AdvReac Intermediate GI SYMPTOMS Verified 12/22/20 13:07 Doxycycline Hyclate Allergy Unknown Unknown Uncoded 12/22/20 13:07 Active Medications: Current Medications Generic Name Dose Route Start Last Admin Trade Name Freq PRN Reason Stop Dose Admin Heparin Sodium (Porcine) 5,000 unit 01/07/21 17:48 01/09/21 09:05 Heparin Sodium,Porcine 5,000 Unit/Ml Vial SUBCUT 5,000 unit Q8H [facility] Administration Sodium Chloride 1,000 mls @ 80 mls/hr 01/07/21 17:48 01/09/21 09:00 Ns IVCONT Infused .[id number] [facility] Infusion Sodium Chloride 1,000 mls @ 100 mls/hr 01/26/21 00:00 Ns IVCONT .Q10H [facility] Insulin Human Lispro 0 unit 01/07/21 17:48 01/09/21 11:41 Insulin Lispro 100 Unit/Ml 3 Ml Vial SUBCUT 2 unit QIDACHS [facility] Administration Protocol Loperamide HCl 2 mg 01/09/21 09:21 01/09/21 11:55 Loperamide Hcl 2 Mg Capsule PO 2 mg Q4H PRN Administration diarrhea Sodium Bicarbonate 650 mg 01/09/21 15:00 01/09/21 14:23 Sodium Bicarbonate 650 Mg Tablet PO 650 mg TID [facility] Administration Sodium Chloride 3 ml 01/07/21 17:48 01/09/21 15:49 0.9 % Sodium Chloride Flush 3 Ml Syringe IVFLUSH Not Given QSHIFT [facility] Home Medications Medication Instructions Recorded Confirmed Last Taken Type ascorbic acid (vitamin C) 500 mg mg PO 09/18/20 12/28/20 Unknown History capsule calcium citrate 200 mg (950 mg) 200 mg PO DAILY 09/18/20 12/28/20 Unknown History tablet cholecalciferol (vitamin D3) 50 50 mcg PO DAILY 09/18/20 12/28/20 Unknown History mcg (2,000 unit) capsule furosemide 40 mg tablet 40 mg PO DAILY tab 09/18/20 12/28/20 Unknown History losartan 50 mg tablet 50 mg PO BID tab 09/18/20 01/07/21 Unknown History metformin 500 mg tablet 500 mg PO BID 09/18/20 01/07/21 Unknown History metoprolol tartrate 25 mg tablet See Rx Instructions PO .COMPLEX 09/18/20 01/07/21 Unknown History multivitamin 1 tab PO DAILY 09/18/20 12/28/20 Unknown History potassium chloride 20 mEq 20 meq PO DAILY tab 09/18/20 12/28/20 Unknown History tablet,extended release(part/cryst) collagenase clostridium histo. 1 applic TOPICAL DAILY 01/07/21 01/07/21 Unknown History [Santyl] metolazone 2.5 mg PO 01/07/21 Unknown History Physical Exam Vital Signs: Vital Signs: Last Vital Signs Temp 97.7 F 01/09/21 15:43 Pulse 62 01/09/21 15:43 Resp 16 01/09/21 15:43 BP 166/74 H 01/09/21 15:43 Pulse Ox 98 01/09/21 15:43 Body Mass Index 26.9 Const: General: cooperative Orientation/consciousness: patient oriented x3 HENMT: Head: Yes normal to inspection Mouth: Normal oral and palatal mucosa present Eyes: General: appearance normal, both eyes and all related structures Resp: Effort & Inspection: normal respiratory effort Cardio: Rate: regular rate Rhythm: regular rhythm GI: Palpation (GI): Soft to palpation and nontender : General: Yes no CVA tenderness Back/Spine/Pelvis: Back: no CVA tenderness Skin: Other: area probe to bone ischium Neuro: General: patient oriented x3 Results Labs CBC & Chem 7: 01/09/21 05:34 01/09/21 05:34 Labs: Short CBC 01/09/21 Range/Units 05:34 WBC 10.1 (4.8-10.8) X10*3/uL Hgb 8.8 L (14.0-18.0) g/dl Hct 28.3 L (42-52) % Plt Count 249 (160-400) X10*3/uL BMP 01/09/21 05:34 Sodium 136 Potassium 4.9 Chloride 115 H Carbon Dioxide 14 L BUN 93 H* Creatinine 2.86 H Calcium 8.5 Microbiology Microbiology Results: Microbiology 01/07/21 12:51 Blood - Venous Blood Culture - Preliminary No growth after 48 hours. 01/07/21 12:51 Blood - Venous Blood Culture - Preliminary No growth after 48 hours. 01/07/21 16:48 Urine clean catch - Clean Catch Midstream Urine Culture - Final Klebsiella pneumoniae Assessment and Plan (1) Osteomyelitis: Problem details: He has osteomyelitis involving ischium He may likely have MRSA as present at this site earlier Status: Acute Pharmacy consult for Vancomycin dosing and monitoring for osteomyelitis ischium 6 weeks This will cover foot as well Prognosis is poor
[2021-01-09 16:38] LABS: Glucose, Whole Blood 185 mg/dL (60-115)
[2021-01-09] MEDS: vancomycin HCL 750 MG in 0.9 % Sodium Chloride 250 ML 265 MG IV (16:45)
[2021-01-09 19:33] VITALS: BP 149/69; PULSE 60; RESP 16; TEMP 36.4; O2SAT 94
[2021-01-09 20:36] LABS: Glucose, Whole Blood 158 mg/dL (60-115)
[2021-01-09] MEDS: 0.9 % Sodium Chloride 1,000 ML 80 ML IVCONT (21:48)
[2021-01-09 23:13] VITALS: BP 113/49; PULSE 64; RESP 20; TEMP 36.3; O2SAT 95
[2021-01-10] MEDS: Heparin Sodium,Porcine 5,000 UNIT/ML VIAL 5000 UNIT SUBCUT ×3 (01:47→21:03)
[2021-01-10 03:46] VITALS: BP 139/92; PULSE 69; RESP 20; TEMP 36.7; O2SAT 94
[2021-01-10 06:06] LABS: MANUAL DIFF FLAG NO
[2021-01-10 06:44] LABS: Basophils Percent Auto 0.2 % (0-2); Eosinophils Absolute Auto 0.1 X10*3/uL (0.0-0.4); Hemoglobin 9.1 g/dl (14.0-18.0); Imm Gran Abs Auto 0.08 X10*3/uL (0.00-0.03); Imm Gran Pct Auto 0.8 % (0.0-0.4); Lymphocytes Absolute Auto 0.8 X10*3/uL (1.2-4.9); Lymphocytes Percent Auto 8.5 % (20-40); Mean Corpuscular HGB Conc 30.3 g/dl (31.0-36.0); Mean Corpuscular Hemoglobin 23.8 pg (27.0-33.0); Mean Corpuscular Volume 78.5 fL (80-98); Mean Platelet Volume 9.9 fL (9.4-12.4); Monocytes Absolute Auto 1.4 X10*3/uL (0.1-1.2); Monocytes Percent Auto 14.2 % (2-11); Neutrophils Absolute Auto 7.2 X10*3/uL (2.0-8.3); Neutrophils Percent Auto 75.3 % (45-73); Platelet Count 263 X10*3/uL (160-400); Red Blood Count 3.82 X10*6/uL (4.60-5.80); Red Cell Distribution Width 17.2 % (11.0-16.0); White Blood Count 9.6 X10*3/uL (4.8-10.8)
[2021-01-10 06:46] LABS: Anion Gap 13 (12-20); Blood Urea Nitrogen 81 mg/dL (9-16); Calcium 8.3 mg/dL (8.4-10.2); Carbon Dioxide 14 mmol/L (22-29); Chloride 118 mmol/L (96-108); Creatinine Clr Calc Pharmacy 28.2; Estimated Glomerular Filt Rate 27; Glucose Fasting 129 mg/dL (60-99); Potassium 4.8 mmol/L (3.3-5.1); Sodium 140 mmol/L (135-145)
[2021-01-10 07:20] VITALS: BP 163/71; PULSE 64; RESP 19; TEMP 36.6; O2SAT 97
[2021-01-10 07:38] LABS: Glucose, Whole Blood 123 mg/dL (60-115)
[2021-01-10] MEDS: Sodium Bicarbonate 650 MG TABLET PO ×3 (08:58→21:02)
[2021-01-10] MEDS: levoFLOXacin 250 MG TABLET PO (08:58)
--- NOTE | 2021-01-10 09:41 | P.PNNP_ITS ---
Subjective Subjective Date of Service: 01/10/21 Interval history: diarrhea little improved. breathing better. Physical Exam Vital Signs: Vital Signs: Last Vital Signs Temp 97.8 F 01/10/21 07:20 Pulse 64 01/10/21 07:20 Resp 19 01/10/21 07:20 BP 163/71 H 01/10/21 07:20 Pulse Ox 97 01/10/21 07:20 Body Mass Index 26.9 Objective Data Labs CBC & Chem 7: 01/10/21 05:57 01/10/21 05:57 Labs: Laboratory Results - last 24 hr 01/09/21 01/09/21 01/09/21 11:20 16:30 20:16 WBC RBC Hgb Hct MCV MCH MCHC RDW Plt Count MPV Immature Gran % (Auto) Neut % (Auto) Lymph % (Auto) [place] % (Auto) Eos % (Auto) Baso % (Auto) Lymph # (Auto) [place] # (Auto) Eos # (Auto) Baso # (Auto) Abs Immat Gran (auto) Absolute Neuts (auto) Absolute Nucleated RBC Nucleated RBC % (auto) Sodium Potassium Chloride Carbon Dioxide Anion Gap BUN Creatinine Estim Creat Clear Calc Estimated GFR POC Glucose 191 H 185 H 158 H Fasting Glucose Calcium 01/10/21 01/10/21 01/10/21 05:57 05:57 07:19 WBC 9.6 RBC 3.82 L Hgb 9.1 L Hct 30.0 L MCV 78.5 L MCH 23.8 L MCHC 30.3 L RDW 17.2 H Plt Count 263 MPV 9.9 Immature Gran % (Auto) 0.8 H Neut % (Auto) 75.3 H Lymph % (Auto) 8.5 L [place] % (Auto) 14.2 H Eos % (Auto) 1.0 Baso % (Auto) 0.2 Lymph # (Auto) 0.8 L [place] # (Auto) 1.4 H Eos # (Auto) 0.1 Baso # (Auto) 0.0 Abs Immat Gran (auto) 0.08 H Absolute Neuts (auto) 7.2 Absolute Nucleated RBC 0.000 Nucleated RBC % (auto) 0.0 Sodium 140 Potassium 4.8 Chloride 118 H Carbon Dioxide 14 L Anion Gap 13 BUN 81 H* Creatinine 2.33 H Estim Creat Clear Calc 28.2 Estimated GFR 27 POC Glucose 123 H Fasting Glucose 129 H Calcium 8.3 L Microbiology Microbiology Results: Microbiology 01/07/21 12:51 Blood - Venous Blood Culture - Preliminary No growth after 48 hours. 01/07/21 12:51 Blood - Venous Blood Culture - Preliminary No growth after 48 hours. 01/07/21 16:48 Urine clean catch - Clean Catch Midstream Urine Culture - Final Klebsiella pneumoniae Assessment & Plan Assessment and plan (1) Acute kidney injury (GEMMA) with acute tubular necrosis (ATN): Status: Acute Assessment and Plan: creatinine down to baseline 2.3 mg/dL - would hold further IVF - consider adding sodium bicarbonate tablets 1300 mg bid - ok to resume outpatient diuretics (if ok with cards) once diarrhea is slowing down - defer to primary and GI regarding diarrhea w/u (2) Chronic right heart failure: Status: Acute Time Spent With Patient Time: Total time spent is greater than 50% in coordination of care (as documented) at patient's floor/unit and/or counseling patient:
--- NOTE | 2021-01-10 10:51 | P.PNGS_ITS ---
Subjective Subjective Date of Service: 01/10/21 Interval history: No new complaints Good p.o. intake No fever Physical Exam Vital Signs: Vital Signs: Last Vital Signs Temp 97.8 F 01/10/21 07:20 Pulse 64 01/10/21 07:20 Resp 19 01/10/21 07:20 BP 163/71 H 01/10/21 07:20 Pulse Ox 97 01/10/21 07:20 Body Mass Index 26.9 Laboratory Results - last 24 hr 01/09/21 01/09/21 01/09/21 11:20 16:30 20:16 WBC RBC Hgb Hct MCV MCH MCHC RDW Plt Count MPV Immature Gran % (A uto) Neut % (Auto) Lymph % (Auto) [place] % (Auto) Eos % (Auto) Baso % (Auto) Lymph # (Auto) [place] # (Auto) Eos # (Auto) Baso # (Auto) Abs Immat Gran (au to) Absolute Neuts (au to) Absolute Nucleated RBC Nucleated RBC % (a uto) Sodium Potassium Chloride Carbon Dioxide Anion Gap BUN Creatinine Estim Creat Clear Calc Estimated GFR POC Glucose 191 H 185 H 158 H Fasting Glucose Calcium 01/10/21 01/10/21 01/10/21 05:57 05:57 07:19 WBC 9.6 RBC 3.82 L Hgb 9.1 L Hct 30.0 L MCV 78.5 L MCH 23.8 L MCHC 30.3 L RDW 17.2 H Plt Count 263 MPV 9.9 Immature Gran % (A uto) 0.8 H Neut % (Auto) 75.3 H Lymph % (Auto) 8.5 L [place] % (Auto) 14.2 H Eos % (Auto) 1.0 Baso % (Auto) 0.2 Lymph # (Auto) 0.8 L [place] # (Auto) 1.4 H Eos # (Auto) 0.1 Baso # (Auto) 0.0 Abs Immat Gran (au to) 0.08 H Absolute Neuts (au to) 7.2 Absolute Nucleated RBC 0.000 Nucleated RBC % (a uto) 0.0 Sodium 140 Potassium 4.8 Chloride 118 H Carbon Dioxide 14 L Anion Gap 13 BUN 81 H* Creatinine 2.33 H Estim Creat Clear Calc 28.2 Estimated GFR 27 POC Glucose 123 H Fasting Glucose 129 H Calcium 8.3 L Const: General: comfortable and no acute distress Resp: Effort & Inspection: normal respiratory effort Cardio: Rhythm: regular rhythm GI: Palpation (GI): Soft to palpation and nontender Skin: Other: Large in the left ischial tuberosity ulcer, clean, no pus, no necrotic tissue; large sacral ulcer clean; heel ulcer on the right with eschar Progress Note: A&P Assessment and plan (1) Pressure ulcer of right hip, stage 4: Status: Acute Assessment and Plan: Large deep ulcer on the left hip clean, no gangrene or necrosis Would continue good wound care as the wound base appears better Alginate dressings applied Eschar on right heel ulcer noted - as per Wound Clinic:keep eschar in place to cover the calcaneus Needs intensive wound care even for the long-term Frequent position changes Discussed with nursing staff at bedside as well Fall Risk Details Current Medications: Current Medications Generic Name Dose Route Start Last Admin Trade Name Freq PRN Reason Stop Dose Admin Heparin Sodium (Porcine) 5,000 unit 01/07/21 17:48 01/10/21 08:58 Heparin Sodium,Porcine 5,000 Unit/Ml Vial SUBCUT 5,000 unit Q8H MAGDALENA Administration Sodium Chloride 1,000 mls @ 80 mls/hr 01/07/21 17:48 01/10/21 09:29 Ns IVCONT 01/10/21 13:00 Infused .[id number] MAGDALENA Infusion Vancomycin HCl 750 mg/ Sodium 265 mls @ 265 mls/hr 01/09/21 18:00 01/09/21 17:56 Chloride IV Infused Q24H MAG[facility] Infusion Insulin Human Lispro 0 unit 01/07/21 17:48 01/10/21 07:26 Insulin Lispro 100 Unit/Ml 3 Ml Vial SUBCUT Not Given QIDACHS [facility] Protocol Levofloxacin 250 mg 01/10/21 09:00 01/10/21 08:58 Levofloxacin 250 Mg Tablet PO 01/12/21 09:01 250 mg Q24H MAGDALENA Administration Loperamide HCl 2 mg 01/09/21 09:21 01/09/21 16:44 Loperamide Hcl 2 Mg Capsule PO 2 mg Q4H PRN Administration diarrhea Pharmacy Consult 1 each 01/09/21 16:25 Consult Rx Vancomycin Dosing MISCELLANE DAILY PRN Consult order Sodium Bicarbonate 650 mg 01/09/21 15:00 01/10/21 08:58 Sodium Bicarbonate 650 Mg Tablet PO 650 mg TID MAGDALENA Administration Sodium Chloride 3 ml 01/07/21 17:48 01/10/21 07:26 0.9 % Sodium Chloride Flush 3 Ml Syringe IVFLUSH Not Given QSHIFT MAGDALENA Time Spent With Patient Time: Total time spent is greater than 50% in coordination of care (as documented) at patient's floor/unit and/or counseling patient: Time with patient: 15 - 24 minutes
[2021-01-10 11:10] VITALS: BP 174/74; PULSE 60; RESP 20; TEMP 36.7; O2SAT 97
[2021-01-10 11:24] LABS: Glucose, Whole Blood 153 mg/dL (60-115)
[2021-01-10] MEDS: Insulin Lispro 100 UNIT/ML 3 ML VIAL SUBCUT ×2 (11:34→16:27)
--- NOTE | 2021-01-10 11:53 | HO.PM.IMPN ---
Subjective Subjective Date of Service: 01/10/21 Interval History: the patient was seen and evaluated this morning Laying in bed, feels comfortable overall generally tired Denies any fever, chills or having any more diarrhea No reported other overnight events. Systemic review: No fever, chills or weakness No chest pain, palpitation No shortness of breath or coughing No abdominal pain, nausea or vomiting No urinary symptoms No any rash in the back pain from the wound in his ischemia area Physical Exam Vital Signs: Vital Signs: Last Vital Signs Temp 98.0 F 01/10/21 11:10 Pulse 60 01/10/21 11:10 Resp 20 01/10/21 11:10 BP 174/74 H 01/10/21 11:10 Pulse Ox 97 01/10/21 11:10 Body Mass Index 26.9 Const: Other: Constitutional : Alert, oriented, not in distress Neck : Normal inspection, Supple Cardiovascular : RRR, S1 S2, there trace bilateral, lower extremity edema Respiratory : Good bilateral air entry, no crackles, wheezes or rhonchi Gastrointestinal: soft, lax, Normal bowel sounds, Non tender Skin : Warm/Dry, or the ischial wound stage II with eschar, Right heel pressure ulcer stage IV Neurological : Alert & oriented x3, paraplegic Objective Data Current Medications Generic Name Dose Route Start Last Admin Trade Name Freq PRN Reason Stop Dose Admin Amlodipine Besylate 2.5 mg 01/10/21 11:45 Amlodipine Besylate 2.5 Mg Tablet PO DAILY [facility] Protocol Heparin Sodium (Porcine) 5,000 unit 01/10/21 11:45 Heparin Sodium,Porcine 5,000 Unit/Ml Vial SUBCUT Q12H [facility] Vancomycin HCl 750 mg/ Sodium 265 mls @ 265 mls/hr 01/09/21 18:00 01/09/21 17:56 Chloride IV Infused Q24H [facility] Infusion Insulin Human Lispro 0 unit 01/07/21 17:48 01/10/21 11:34 Insulin Lispro 100 Unit/Ml 3 Ml Vial SUBCUT 2 unit QIDACHS [facility] Administration Protocol Levofloxacin 250 mg 01/10/21 09:00 01/10/21 08:58 Levofloxacin 250 Mg Tablet PO 01/12/21 09:01 250 mg Q24H [facility] Administration Loperamide HCl 2 mg 01/09/21 09:21 01/09/21 16:44 Loperamide Hcl 2 Mg Capsule PO 2 mg Q4H PRN Administration diarrhea Metoprolol Tartrate 0 mg 01/10/21 11:45 Metoprolol Tartrate 25 Mg Tablet PO .COMPLEX [facility] Protocol Pharmacy Consult 1 each 01/09/21 16:25 Consult Rx Vancomycin Dosing MISCELLANE DAILY PRN Consult order Sodium Bicarbonate 650 mg 01/09/21 15:00 01/10/21 08:58 Sodium Bicarbonate 650 Mg Tablet PO 650 mg TID MAGDALENA Administration Sodium Chloride 3 ml 01/07/21 17:48 01/10/21 07:26 0.9 % Sodium Chloride Flush 3 Ml Syringe IVFLUSH Not Given QSHIFT [facility] Labs CBC & Chem 7: 01/10/21 05:57 01/10/21 05:57 Microbiology Microbiology Results: Microbiology 01/07/21 12:51 Blood - Venous Blood Culture - Preliminary No growth after 48 hours. 01/07/21 12:51 Blood - Venous Blood Culture - Preliminary No growth after 48 hours. 01/07/21 16:48 Urine clean catch - Clean Catch Midstream Urine Culture - Final Klebsiella pneumoniae Assessment and Plan (1) Status post tricuspid valve replacement: Status: Acute (2) Status post aortic valve replacement with bioprosthetic valve: Status: Acute Assessment and Plan: 75M presented with diarrhea, found to have Jose D and hyperkalemia diarrhea Improved Thenot had further stool to send sample yet negative cdif, will use imodium JOSE D on CKD IV complicated by hyperkalemia due to diarrhea Improving back to baseline holding lisinopril, losartan, K supplements, lopressor, metformin, lasix JOSE D improving (creatinine from 3.79 to 2.3, a baseline around 2?) hyperkalemia resolved (was 6, now 4.8) Discontinue IVF continue oral sodium bicarb monitor bmp nephro following UTI Growing Klebsiella next 9 to use the Levaquin Right heel pressure ulcer stage IV Keep mask in place and continue wound care Intensive wound care as outpatient Lt Ischial osteomyelitis ID input appreciated To place a Gomez catheter for total of 6 weeks of IV antibiotics Continue wound care Hypertension medications on Hold for Jose D I the Start hydralazine and metoprolol Monitor blood pressure DM hold metformin insulin sliding scale paraplegia usually self catheterizes, indwelling [place] while inpatient PVD outpatient follow up with dr Tanner DVT PPX Heparin SC
[2021-01-10] MEDS: hydrALAZINE HCl 10 MG TABLET PO ×3 (12:36→21:02)
--- NOTE | 2021-01-10 13:49 | MHC.CM.PN ---
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 PATIENT VOICED VERY STRONGLY THAT HE IS NOT GOING TO A REHAB. HE FEELS HE NEEDS TO GET HIS WHEELCHAIR HERE AND HIS TRANSPORT AND WORK WITH THE PHYSICAL THERAPIST AND OCCUPATIONAL THERAPIST SINCE HE HAS BEEN IN BED FOR THE LAST 3-4 DAYS AND WEAK. HIS VOIC3D CONCERN THAT SHE WILL NOT BE ABLE TO DO ALL THE LIFTING HE WILL NEED TO BE ABLE TO STRONGER IN ORDER TO DO THIS AND COME HOME, CASE DISCUSSED WITH THE HOSPITALIST AND REQUESTED A PHYSICAL AND OCCUPATIONAL THERAPy consult , (patients will bring in his specialized wheelchair and transfer board and hve pt/ot NURSING WORKING WITH HIM IF HE CLEARLY IS UNABLE TO DO THIS WE WILL HAVE TO LOOK AT [facility]. DISCHARGED NEED INITIALLY DAILY NURSING FOR IV ABX /PIC LINE MEDICATION ADMINISTRATION AND TEACHING (PATIENT HAS HAD THIS IN THE PAST AND OPERATED THE INFUSION PUMP) AND DAILY DRESSING CHANGES FOR ASSESSMENT AND REINFORCEMENT TEACHING TO PATIENTS , HE WILL ALSO NEED HOME PHYSICAL AND OCCUPATIONAL THERAPY, HE WOULD LIKE TO HAVE THE PRESENT NURSING [facility] BACK BUT HE STATED THEY HAVE DIFFICULTY IN GETTING PT HOME VISITS AND NO ONE FOR HOME HEALTH AIDES , I REFERRED THIS TO [facility], (ALSO [facility] , [facility], [facility], [place] , [facility], [facility] ,[facility] DISCHARGE PLAN- 1, 01/10/21-HOME WITH [facility] FOR (NURSING ,QD IV ABX/PIC LINE/DAILY DRESSING CHANGES/-HOME PHYSICAL ,OCCUPATIONAL THEAPRY/HOME HEALTH AIDES . 2. HOME INFUSION INIATED TO [facility] FOR HOME IV ABX. PATIENTS WILL BRING IN [facility] SPECIALIZED WHEELCHAIR AND TRANSPORT BOARD. FOR PT/OT NSG TO WORK WITH PATIENT
--- NOTE | 2021-01-10 15:08 | MHC.CLN ---
F/U PO INTAKE 75-100% DIET RX: 2200DM-APPROPRIATE PT RECEIVING ENSURE TID, TASIA BID AND PROSOURCE Q DAY TO PROVIDE 1270KCALS, 80G PROTEIN TO PROMOTE WOUND HEALING MONITOR PO INTAKE CLOSELY
[2021-01-10 15:37] VITALS: BP 164/68; PULSE 61; RESP 16; TEMP 36.4; O2SAT 97
[2021-01-10 16:23] LABS: Glucose, Whole Blood 154 mg/dL (60-115)
[2021-01-10] MEDS: vancomycin HCL 750 MG in 0.9 % Sodium Chloride 250 ML 265 MG IV (17:14)
[2021-01-10 19:34] VITALS: BP 158/66; PULSE 59; RESP 18; TEMP 36.4; O2SAT 99
[2021-01-10 20:41] LABS: Glucose, Whole Blood 132 mg/dL (60-115)
[2021-01-10] MEDS: Metoprolol Tartrate 25 MG TABLET PO (21:03)
[2021-01-10] MEDS: 0.9 % Sodium Chloride Flush 3 ML SYRINGE IVFLUSH (21:03)
[2021-01-10 23:14] VITALS: BP 137/57; PULSE 69; RESP 20; TEMP 36.4; O2SAT 97
[2021-01-11 03:44] VITALS: BP 127/58; PULSE 69; RESP 20; TEMP 36.7; O2SAT 96
[2021-01-11 06:46] LABS: Hematocrit 31.5 % (42-52); Hemoglobin 9.4 g/dl (14.0-18.0); Mean Corpuscular HGB Conc 29.8 g/dl (31.0-36.0); Mean Corpuscular Hemoglobin 23.6 pg (27.0-33.0); Mean Corpuscular Volume 79.1 fL (80-98); Mean Platelet Volume 9.5 fL (9.4-12.4); Platelet Count 274 X10*3/uL (160-400); Red Blood Count 3.98 X10*6/uL (4.60-5.80); Red Cell Distribution Width 17.2 % (11.0-16.0); White Blood Count 10.4 X10*3/uL (4.8-10.8)
[2021-01-11 06:53] LABS: Anion Gap 13 (12-20); Blood Urea Nitrogen 75 mg/dL (9-16); Calcium 8.7 mg/dL (8.4-10.2); Carbon Dioxide 15 mmol/L (22-29); Chloride 119 mmol/L (96-108); Creatinine Clr Calc Pharmacy 30.2; Estimated Glomerular Filt Rate 29; Glucose Random 125 mg/dL (60-115); Potassium 5.1 mmol/L (3.3-5.1); Sodium 142 mmol/L (135-145)
[2021-01-11 07:09] LABS: INTERNATIONAL NORM RATIO 1.3 (0.9-1.1); Prothrombin Time 15.7 SEC (10.8-13.0)
[2021-01-11 07:12] LABS: Partial Thromboplastin Time 34.7 SEC (24.1-38.0)
[2021-01-11 07:13] VITALS: BP 153/72; PULSE 60; RESP 19; TEMP 36.7; O2SAT 96
[2021-01-11 07:30] LABS: Glucose, Whole Blood 122 mg/dL (60-115)
[2021-01-11] MEDS: Sodium Bicarbonate 650 MG TABLET PO ×2 (07:42→15:15)
[2021-01-11] MEDS: hydrALAZINE HCl 10 MG TABLET PO ×2 (07:42→15:15)
[2021-01-11] MEDS: levoFLOXacin 250 MG TABLET PO (07:42)
[2021-01-11] MEDS: Metoprolol Tartrate 12.5 MG HALFTAB PO (07:42)
[2021-01-11] MEDS: 0.9 % Sodium Chloride Flush 3 ML SYRINGE IVFLUSH ×2 (07:45→15:20)
--- NOTE | 2021-01-11 08:09 | P.PNGS_ITS ---
Subjective Subjective Date of Service: 01/11/21 Interval history: No new complaints No events reported Says he feels well today Physical Exam Vital Signs: Vital Signs: Last Vital Signs Temp 98.0 F 01/11/21 07:13 Pulse 60 01/11/21 07:13 Resp 19 01/11/21 07:13 BP 153/72 H 01/11/21 07:13 Pulse Ox 96 01/11/21 07:13 Body Mass Index 26.9 Laboratory Results - last 24 hr 01/10/21 01/10/21 01/10/21 11:08 16:17 20:33 WBC RBC Hgb Hct MCV MCH MCHC RDW Plt Count MPV Absolute Nucleated RBC Nucleated RBC % (a uto) PT INR APTT Sodium Potassium Chloride Carbon Dioxide Anion Gap BUN Creatinine Estim Creat Clear Calc Estimated GFR POC Glucose 153 H 154 H 132 H Random Glucose Calcium 01/11/21 01/11/21 01/11/21 06:01 06:01 06:01 WBC 10.4 RBC 3.98 L Hgb 9.4 L Hct 31.5 L MCV 79.1 L MCH 23.6 L MCHC 29.8 L RDW 17.2 H Plt Count 274 MPV 9.5 Absolute Nucleated RBC 0.000 Nucleated RBC % (a uto) 0.0 PT 15.7 H INR 1.3 H APTT 34.7 Sodium 142 Potassium 5.1 Chloride 119 H Carbon Dioxide 15 L Anion Gap 13 BUN 75 H Creatinine 2.18 H Estim Creat Clear Calc 30.2 Estimated GFR 29 POC Glucose Random Glucose 125 H D Calcium 8.7 01/11/21 07:11 WBC RBC Hgb Hct MCV MCH MCHC RDW Plt Count MPV Absolute Nucleated RBC Nucleated RBC % (a uto) PT INR APTT Sodium Potassium Chloride Carbon Dioxide Anion Gap BUN Creatinine Estim Creat Clear Calc Estimated GFR POC Glucose 122 H Random Glucose Calcium Const: General: comfortable and no acute distress Resp: Effort & Inspection: normal respiratory effort GI: Palpation (GI): Soft to palpation Back/Spine/Pelvis: Other: Left ischial tuberosity ulcer deep, clean, no pus, no necrotic tissue; sacral decubitus ulcer also clean, superficial with granulation Extrem: Other: Right heel ulcer with eschar, dry, no pus or cellulitis Progress Note: A&P Assessment and plan (1) Pressure ulcer of left hip: Status: Acute Assessment and Plan: Left hip ulcer down to bone -stage 4 Clean, no pus, no necrotic tissue Dressings changed - silver alginate used Right heel ulcer with thick eschar, dry - as per wound clinic: Keep eschar in place to cover calcaneus bedsore precautions Patient to get a PICC line today Looks well otherwise Fall Risk Details Current Medications: Current Medications Generic Name Dose Route Start Last Admin Trade Name Freq PRN Reason Stop Dose Admin Heparin Sodium (Porcine) 5,000 unit 01/10/21 11:45 01/10/21 21:03 Heparin Sodium,Porcine 5,000 Unit/Ml Vial SUBCUT 5,000 unit Q12H MAGDALENA Administration Hydralazine HCl 10 mg 01/10/21 12:15 01/11/21 07:42 Hydralazine Hcl 10 Mg Tablet PO 10 mg TID MAGDALENA Administration Protocol Vancomycin HCl 750 mg/ Sodium 265 mls @ 265 mls/hr 01/09/21 18:00 01/10/21 18:23 Chloride IV Infused Q24H [facility] Infusion Insulin Human Lispro 0 unit 01/07/21 17:48 01/11/21 07:15 Insulin Lispro 100 Unit/Ml 3 Ml Vial SUBCUT Not Given QIDACHS [facility] Protocol Levofloxacin 250 mg 01/10/21 09:00 01/11/21 07:42 Levofloxacin 250 Mg Tablet PO 01/12/21 09:01 250 mg Q24H MAGDALENA Administration Loperamide HCl 2 mg 01/09/21 09:21 01/09/21 16:44 Loperamide Hcl 2 Mg Capsule PO 2 mg Q4H PRN Administration diarrhea Metoprolol Tartrate 12.5 mg 01/11/21 09:00 01/11/21 07:42 Metoprolol Tartrate 12.5 Mg Halftab PO 12.5 mg DAILY MAGDALENA Administration Metoprolol Tartrate 25 mg 01/10/21 21:00 01/10/21 21:03 Metoprolol Tartrate 25 Mg Tablet PO 25 mg BEDTIME MAGDALENA Administration Pharmacy Consult 1 each 01/09/21 16:25 Consult Rx Vancomycin Dosing MISCELLANE DAILY PRN Consult order Sodium Bicarbonate 650 mg 01/09/21 15:00 01/11/21 07:42 Sodium Bicarbonate 650 Mg Tablet PO 650 mg TID MAGDALENA Administration Sodium Chloride 3 ml 01/07/21 17:48 01/11/21 07:45 0.9 % Sodium Chloride Flush 3 Ml Syringe IVFLUSH 3 ml QSHIFT [facility] Administration Time Spent With Patient Time: Total time spent is greater than 50% in coordination of care (as documented) at patient's floor/unit and/or counseling patient: Time with patient: 15 - 24 minutes
[2021-01-11] MEDS: DAPTOmycin 500 MG in 0.9 % Sodium Chloride 50 ML 100 MG IV (10:29)
[2021-01-11 11:30] VITALS: BP 164/70; PULSE 60; RESP 18; TEMP 36.3; O2SAT 97
[2021-01-11 11:33] LABS: Glucose, Whole Blood 119 mg/dL (60-115)
[2021-01-11] MEDS: Heparin Sodium,Porcine 5,000 UNIT/ML VIAL 5000 UNIT SUBCUT (12:48)
--- NOTE | 2021-01-11 13:05 | PM.DS ---
DS: Providers Provider Date of Service: 01/11/21 Date of admission: 01/07/21 15:21 Primary care physician: Dimitri Cantu MD Consults: 01/07/21 17:48 Consult to Nephrology Routine Consulting Provider: Abhinav Cotto Reason for consultation: gemma on ckd, hyperkalemia 01/07/21 23:00 Consult to Wound Care Stat Consulting Provider: [facility] [place] [facility] Reason for consultation: stage 3 decubitus ulcer Has provider been notified: No 01/08/21 12:06 Consult to Wound Care Routine Consulting Provider: Izabella Grace Reason for consultation: heel ulcer 01/08/21 15:47 Consult to General Surgery Routine Consulting Provider: Agustin Baig Reason for consultation: ischial tuberosity worsening ulcer with bone fragments Consult to Infectious Diseases Routine Consulting Provider: Erica Baker Reason for consultation: ischial tuberosity worsening ulcer with bone fragments 01/11/21 08:44 Consult to Infectious Diseases Routine Consulting Provider: Erica Baker Reason for consultation: RESTRICTED ANTIBIOTIC Has provider been notified: Yes DS: Diagnosis Discharge Diagnosis (1) Pressure ulcer of left hip: Status: Acute (2) Osteomyelitis: Status: Acute (3) Acute kidney injury (GEMMA) with acute tubular necrosis (ATN): Status: Acute (4) Pressure ulcer of right hip, stage 4: Status: Acute (5) Pressure ulcer of right heel, unstageable: Status: Acute (6) Pressure ulcer of left buttock, stage 4: Status: Acute (7) Paraplegia: Status: Acute DS: Medications Discharge Medications Home Medications: Home Medications Medication Instructions Recorded Confirmed ascorbic acid (vitamin C) 500 mg mg PO 09/18/20 12/28/20 capsule calcium citrate 200 mg (950 mg) 200 mg PO DAILY 09/18/20 12/28/20 tablet cholecalciferol (vitamin D3) 50 50 mcg PO DAILY 09/18/20 12/28/20 mcg (2,000 unit) capsule furosemide 40 mg tablet 40 mg PO DAILY tab 09/18/20 12/28/20 metformin 500 mg tablet 500 mg PO BID 09/18/20 01/07/21 metoprolol tartrate 25 mg tablet See Rx Instructions PO .COMPLEX 09/18/20 01/07/21 multivitamin 1 tab PO DAILY 09/18/20 12/28/20 potassium chloride 20 mEq 20 meq PO DAILY tab 09/18/20 12/28/20 tablet,extended release(part/cryst) Santyl 1 applic TOPICAL DAILY 01/07/21 01/07/21 metolazone 2.5 mg PO 01/07/21 Previous Rx's Medication Instructions Recorded daptomycin [Cubicin RF] 500 mg IV Q24H #39 ea 01/11/21 hydralazine 10 mg PO BID 60 Days #120 tab 01/11/21 levofloxacin 250 mg PO Q24H #3 tab 01/11/21 loperamide 2 mg PO Q4H PRN #20 cap 01/11/21 losartan 50 mg PO DAILY #0 tab 01/11/21 sodium bicarbonate 1,300 mg PO BID #120 tab 01/11/21 DS: Summary Hospital Course Hospital Course: Admission note HPI 75M presented with diarrhea. symptoms began about 8 days ptp. patient has several watery stools daily, each episode is proceeded by sharp abdominal pain releived by defecation. denies blood. stool is low volume. not improved with imodium. patient attributes diarrhea to metolazone, although has been off for over a week. patient denies fever, chills, sob. 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 patient given iv fluids. Hospital course Patient was admitted to hospital for diarrhea and increased weakness. Acute injury with creatinine elevated above 4 from baseline 2 associated hyperkalemia. The patient was treated with and holding nephrotoxic medications with good response over the course of hospital stay as creatinine to baseline around 2 with resolution of hyperkalemia. Monitor the Nephrology team during hospital stay who will follow him as outpatient. Tested negative for C diff diarrhea was resolved with using Imodium as urinalysis showed infection Klebsiella. Treated Levaquin. The patient has multiple pressure ulcers in lower extremities secondary to history paraplegia. 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 Blood cultures remain negative. To discharge with total of 6 weeks of daptomycin. To follow-up As outpatient with wound. Discharge plan To start bicarbonate at home To use hydralazine for blood pressure control Continue Levaquin for 3 more days infection urine With decreased losartan dose once a day Monitor blood pressure at home and report 1 week readings to PCP further adjustments Visiting nurses monitor during antibiotic course. Time Spent with Patient Time attestation: Total time spent providing and/or coordinating discharge services: Discharge coordination time: Greater than 30 minutes Physical Exam Vital Signs: Vital Signs: Last Vital Signs Temp 97.3 F 01/11/21 11:30 Pulse 60 01/11/21 11:30 Resp 18 01/11/21 11:30 BP 164/70 H 01/11/21 11:30 Pulse Ox 97 01/11/21 11:30 Body Mass Index 26.9 Const: Other: Constitutional : Alert, oriented, not in distress Neck : Normal inspection, Supple Cardiovascular : RRR, S1 S2, there trace bilateral, lower extremity edema Respiratory : Good bilateral air entry, no crackles, wheezes or rhonchi Gastrointestinal: soft, lax, Normal bowel sounds, Non tender Skin : Warm/Dry, or the ischial wound stage II with eschar, Right heel pressure ulcer stage IV Neurological : Alert & oriented x3, paraplegic DS: Data Data Completed and Pending Labs on day of discharge: Laboratory Results - last 24 hr 01/10/21 01/10/21 01/11/21 16:17 20:33 06:01 WBC 10.4 RBC 3.98 L Hgb 9.4 L Hct 31.5 L MCV 79.1 L MCH 23.6 L MCHC 29.8 L RDW 17.2 H Plt Count 274 MPV 9.5 Absolute Nucleated RBC 0.000 Nucleated RBC % (auto) 0.0 PT INR APTT Sodium Potassium Chloride Carbon Dioxide Anion Gap BUN Creatinine Estim Creat Clear Calc Estimated GFR POC Glucose 154 H 132 H Random Glucose Calcium 01/11/21 01/11/21 01/11/21 06:01 06:01 07:11 WBC RBC Hgb Hct MCV MCH MCHC RDW Plt Count MPV Absolute Nucleated RBC Nucleated RBC % (auto) PT 15.7 H INR 1.3 H APTT 34.7 Sodium 142 Potassium 5.1 Chloride 119 H Carbon Dioxide 15 L Anion Gap 13 BUN 75 H Creatinine 2.18 H Estim Creat Clear Calc 30.2 Estimated GFR 29 POC Glucose 122 H Random Glucose 125 H D Calcium 8.7 01/11/21 11:12 WBC RBC Hgb Hct MCV MCH MCHC RDW Plt Count MPV Absolute Nucleated RBC Nucleated RBC % (auto) PT INR APTT Sodium Potassium Chloride Carbon Dioxide Anion Gap BUN Creatinine Estim Creat Clear Calc Estimated GFR POC Glucose 119 H Random Glucose Calcium Preliminary micro results at discharge 01/07/21 12:51 Blood Culture - Preliminary Blood - Venous No growth after 48 hours. 01/07/21 12:51 Blood Culture - Preliminary Blood - Venous No growth after 48 hours. Discharge Plan Discharge Patient Disposition: Home Health Service Discharge Diagnosis: Acute kidney injury on CKD UTI Osteomyelitis of the ischial bone Referrals: [facility] [Other] - 1 Day (nursing daily to start for iv abx administration and teaching and wound assessment and dressing changes and reinforcement of teaching to patient anf , requesting also home physical ,occupational thearpy to regain his upper body strength and his ability for self transfer also requesting home health aide ) [facility] [Other] - 1 Day (provider of your iv abx /pic line supllies to be delivered to your house and follow up when needed , they will deliver the supplies once you have been d/c ) [facility] [Other] - 1 Week (FOLLOW UP FOR WOUND CARE APPOINTMENT MADE FOR YOU FOR PLEASE CALL IF YOU CAN NOT MAKE THIS FOR ANY REASON,) Erica Baker MD [Physician] - 1 Week (ID PHYSICIAN WILL BE FOLLOWING YOUR LABS WHILE ON ANTIBIOTICS AND FOLLOW UP YOU HAVE A APOOINTMENT FOR JANUARY 15 ATT 2;45 PM PLEASE CALL IF YOU ARE UNABLE TO MAKE THIS FOR ANY REASON) Dimitri Cantu MD [Primary Care Provider] - 1 Week Discharge Medications: New loperamide 2 mg Capsule 2 mg PO Q4H PRN (Reason: diarrhea) Qty: 20 RF: 0 levofloxacin 250 mg Tablet 250 mg PO Q24H Qty: 3 RF: 0 sodium bicarbonate 650 mg Tablet 1,300 mg PO BID Qty: 120 RF: 0 daptomycin [Cubicin RF] 500 mg Recon Soln 500 mg IV Q24H Qty: 39 RF: 0 hydralazine 10 mg Tablet 10 mg PO BID 60 Days Qty: 120 RF: 0 Continued metolazone 2.5 mg tablet 2.5 mg PO RF: 0 Santyl 250 unit/gram ointment 1 applic topical DAILY RF: 0 metformin 500 mg tablet 500 mg PO BID RF: 0 metoprolol tartrate 25 mg tablet See Rx Instructions PO .COMPLEX RF: 0 furosemide 40 mg tablet 40 mg PO DAILY RF: 0 potassium chloride 20 mEq tablet,ER particles/crystals 20 meq PO DAILY RF: 0 cholecalciferol (vitamin D3) 50 mcg (2,000 unit) capsule 50 mcg PO DAILY RF: 0 multivitamin Tablet 1 tab PO DAILY RF: 0 ascorbic acid (vitamin C) 500 mg capsule PO RF: 0 calcium citrate 200 mg (950 mg) tablet 200 mg PO DAILY RF: 0 Changed losartan 50 mg tablet 50 mg PO DAILY Qty: 0 RF: 0 Discharge Orders: Discharge Order (Routine); Ordered 01/11/21 Ordered By: Nathan Melendez Diet: advance to usual diet Activity on Discharge: As tolerated Stand Alone Forms: Patient Portal Discharge page Care Plan Goals: Read below Health Concerns: Read below Plan of Treatment: You were admitted to the hospital for evaluation of diarrhea. No infection was found and it was resolved by use Imodium. Noticed to acute kidney injury which improved with holding home medications with IV fluid. You were evaluated by Nephrology team who will continue to follow outpatient You were evaluated by infectious disease and surgery T for multiple severe lower extremities with images suggesting of ischial bone infection. You were started on IV antibiotics. To continue with Daptomycin for total of 6 weeks of IV antibiotics Assessment: To start bicarbonate at home To use hydralazine for blood pressure control Continue Levaquin for 3 more days infection urine With decreased losartan dose once a day Monitor blood pressure at home and report 1 week readings to PCP further adjustments Visiting nurses monitor during antibiotic course.
--- NOTE | 2021-01-11 13:40 | P.F2F_ITS ---
Service Date Service Date: 01/11/21 Reasons for Services Reason for senior care: administration of IV, SQ, or IM injection and central line care Reason for physical therapy: home safety and mobility and therapeutic exercises Homebound: Leaving the home is medically contraindicated at this time without the asist of a device and/or another person due th the listed conditions above and below. Certification: Based on the above findings, I certify that this patient is confined to the home and needs intermittent senior care care, physical therapy and/or speech therapy, or continues to need occupational therapy. The patient is under my care, and I have initiated the establishment of the plan of care. The patient will be followed by a physician who will periodically review the plan of care.
[2021-01-11 13:51] LABS: COVID-19 Test Negative (Negative)
[2021-01-11 15:18] VITALS: BP 166/73; PULSE 63; RESP 18; TEMP 36.3; O2SAT 97
[2021-01-11 16:01] LABS: Glucose, Whole Blood 185 mg/dL (60-115)
[2021-01-11] MEDS: Insulin Lispro 100 UNIT/ML 3 ML VIAL SUBCUT (16:22)
== END 2021-01-11 18:17 | DRG 673 ==
LOC: HO.ED 11:14 → HO.EDOVER 16:07 → HO.S3 01-08 07:14
PROVIDERS: Internal Medicine; Internal Medicine Nephrology; Radiology Diagnostic Radiology; Admitting Provider Internal Medicine; Emergency Provider Emergency Medicine; PCP Internal Medicine; Visit Provider Student in an Organized Health Care Education/Training Program
DX: N17.0 Acute kidney failure with tubular necrosis (principal); L89.214 Pressure ulcer of right hip, stage 4; L89.324 Pressure ulcer of left buttock, stage 4; G82.20 Paraplegia, unspecified; M86.9 Osteomyelitis, unspecified; N39.0 Urinary tract infection, site not specified; I13.0 Hypertensive heart and chronic kidney disease with heart failure and stage 1 through stage 4 chronic kidney disease, or unspecified chronic kidney disease; N18.4 Chronic kidney disease, stage 4 (severe); E86.0 Dehydration; I95.9 Hypotension, unspecified; E11.69 Type 2 diabetes mellitus with other specified complication; E11.51 Type 2 diabetes mellitus with diabetic peripheral angiopathy without gangrene; I50.812 Chronic right heart failure; B96.1 Klebsiella pneumoniae [K. pneumoniae] as the cause of diseases classified elsewhere; L89.610 Pressure ulcer of right heel, unstageable; E11.22 Type 2 diabetes mellitus with diabetic chronic kidney disease; E87.5 Hyperkalemia; Z20.822 Contact with and (suspected) exposure to COVID-19; Z95.0 Presence of cardiac pacemaker; Z95.2 Presence of prosthetic heart valve; Z79.84 Long term (current) use of oral hypoglycemic drugs; Z79.899 Other long term (current) drug therapy
CPT/HCPCS: 0241U; 36415; 36558; 71045; 76937; 80048; 80076; 81001; 81003; 82947; 83605; 83690; 83735; 84156; 85025; 85027; 85610; 85730; 87040; 87086; 87088; 87186; 87324; 87449; 87635; 89190; 93005; 96360; 96361; 97163; 99152; 99153; 99233; 99285; C1769; J0878; J3370; P9047

== ENCOUNTER → 2021-01-15 14:55 | Outpatient (BNVA) | payer MEDICARE, OTHER, SELFPAY | PROVIDERS: PCP Internal Medicine; Visit Provider Internal Medicine | DX: L89.229 Pressure ulcer of left hip, unspecified stage (principal); L89.610 Pressure ulcer of right heel, unstageable; M86.9 Osteomyelitis, unspecified | CPT/HCPCS: 99212 ==

== ENCOUNTER → 2021-02-12 14:44 | Outpatient (BNVA) | payer MEDICARE, OTHER, SELFPAY | PROVIDERS: PCP Internal Medicine; Visit Provider Internal Medicine | DX: M86.9 Osteomyelitis, unspecified (principal) | CPT/HCPCS: Q3014 ==